=== PATIENT | female | born 1945 | race Caucasian/White ===

== ENCOUNTER 2019-05-14 05:54 | Outpatient (RCR) | payer OTHER, SELFPAY | END 2019-06-11 00:01 | LOC: ONCRAD 05:54 | PROVIDERS: Visit Provider Radiology Radiation Oncology | DX: Z51.0 Encounter for antineoplastic radiation therapy (principal); C55 Malignant neoplasm of uterus, part unspecified | CPT/HCPCS: 77336; 77386 ×2 ==

== ENCOUNTER 2019-06-20 05:41 | Outpatient (RCR) | payer OTHER, SELFPAY | END 2019-07-12 23:59 | disposition home or self-care (01) | LOC: ONCMED 05:41 | PROVIDERS: Visit Provider Radiology Radiation Oncology | DX: C55 Malignant neoplasm of uterus, part unspecified (principal); Z92.3 Personal history of irradiation ==

== ENCOUNTER 2020-01-02 09:17 | Outpatient (CLI) | payer OTHER, SELFPAY ==
--- NOTE | 2020-01-02 11:41 | ONCRAD EPV_ITS ---
Radiation Oncology Established Patient Visit Patient: Jeffy MR#: [id number] : 1945 Age: 74 Sex: Female> Dictated by: Dr. Parveen Thompson Date of Service: 01/02/2020 Referring Physician(s) : Dr. Liam Tafoya Diagnosis: C55 - Malignant neoplasm of uterus, part unspecified, Diagnosed 01/11/2019 (Active) Radiotherapy to Date: Course: Pelvis, Treatment Site: Pelvis 45Gy, Ref. ID: [id number], Energy: 6X, Dose/Fx (cGy): 180, #Fx: 25 / 25, Dose Correction (cGy): 0, Total Dose (cGy): 4,500, Start Date: 04/02/2019, End Date: 05/07/2019, Elapsed Days: 35 Treatment Site: Cervix 50.4Gy, Ref. ID: [id number], Energy: 6X, Dose/Fx (cGy): 180, #Fx: 3 / 3, Dose Correction (cGy): 0, Total Dose (cGy): 540, Start Date: 05/08/2019, End Date: 05/14/2019, Elapsed Days: 6 Chief Complaint / History of Present Illness: The patient is a 74-year-old female with a history of FIGO stage Ib ([id number]) grade 2 endometrial adenocarcinoma status post surgical staging revealing 88% myometrial invasion, positive lymphovascular invasion, and 5 sentinel lymph nodes negative for malignancy. Following surgical staging she was treated with adjuvant radiation to a total dose of 50.4 Gy in 28 fractions followed by brachytherapy in [place]. The patient is seen today in follow-up and she has multiple complaints. She complains of black stools, she complains of abdominal pain, she complains of pencil like stools, she complains of a self palpated left inguinal lymph node, and she complains of a narrowed/shortened vagina. Current Medications: Allergies: Codeine Sulfate and Acetaminophen. Current Complaints / Review of Systems: Constitutional - Complains of a poor appetite. Complains of moderate fatigue. Complains of night sweats which occur every night. Complains of change in weight which she has lost 10 lbs. since last seen on 06/20/2019. Denies fever. Eyes - Denies blurred vision and double vision. ENMT - Denies dysphagia, ear pain, mouth dryness, stomatitis, altered taste and tinnitus. Neck - Denies neck pain. Integumentary - Denies rash. Breasts - Denies pain. Cardiovascular - Denies chest pain but occasionally feels like a band around her chest and edema. Respiratory - Denies cough, dyspnea and wheezing. Gastrointestinal - Complains of abdominal pain after eating. Complains of diarrhea which is characterized as mucoid it is soft and runny and has mucus in it. Complains of heartburn / dyspepsia occasionally. Complains of nausea after eating. Complains of satiety. Denies constipation, hemorrhoids, melena / GI bleeding and vomiting. Genitourinary (F) - Complains of nocturia gets up about 2 to 4 times per night. Denies dysuria, frequency, hematuria, urgency, vaginal discharge / bleeding and vaginal spotting. Musculoskeletal - Complains of joint pain both hips which started after Radiation treatment. Also has lower back pain and muscle weakness in the upper extremity. Denies bone pain. Neurologic - Denies disorientation, dizziness, abnormal gait and headaches. Psychiatric - Complains of depression. Endocrine - Denies diabetes and thyroid disease. Hematologic/Lymphatic - Complains of tender or enlarged lymph nodes in the left groin.. Vital Signs: Performed on 01/02/2020 10:04 AM BMI - 22.266 kg/m2, Height - 65.00 in, Weight - 133.8 lbs, Temperature - 98.6 f, Pulse - 70, Respiration - 16, O2 Sat - 98 %, Pain - 0 and BP - 113/ 71 mm(hg). Physical Exam: General: Alert and oriented x 3. No acute distress. HEENT: Normocephalic, atraumatic. Extraocular Movements Intact: Pupils Equal, Round, Reactive to Light and Accommodation: Sclerae anicteric. Oral cavity is clear without lesions, masses or ulcers. NECK: Supple without supraclavicular or jugular lymphadenopathy. LUNGS: Clear to auscultation bilaterally without rales, rhonchi or wheeze. HEART: Regular rate and rhythm, normal S1 and S2 without murmur, gallop or rub. MUSCULOSKELETAL: No tenderness or percussion pain over the axial skeleton, scapulae or pelvis. ABDOMEN: Soft, nontender, nondistended without masses or organomegaly. Bowell sounds are present. Inguinal lymph nodes: Thorough examination of the bilateral inguinal lymph nodes reveals no palpable abnormalities concerning for malignancy. FRAME FEEDER: External genitalia appears normal and without masses or mucosal irregularity. Speculum examination reveals mild telangiectasia at the vaginal cuff, but no mucosal irregularity within the vaginal soriano or vaginal cuff concerning for malignancy. Palpation of vaginal soriano, vaginal cuff, and rectovaginal septum revealed no irregularity concerning for malignancy. Hemoccult testing was completed and was negative. I also completed vaginal cytology, and the results are pending. However, I suspect that little or no epithelial cells were collected due to the brush that was applied for this procedure. A scraping tool would have been better to obtain epithelial cells from the vaginal cuff. EXTREMITIES: No peripheral edema is identified. Limited motor and sensory examination are grossly intact and symmetric bilaterally. NEUROLOGIC: Cranial nerves II ???XII are grossly intact. Performance Status: 0 - Fully active, able to carry on all predisease activities without restrictions. (ECOG) Pathology: Primary, c55 - malignant neoplasm of uterus, part unspecified, Diagnosed 01/11/2019 (active). Imaging: See HPI Impression: The patient is a 74-year-old female who was diagnosed with pathologic T1b N0 M0 endometrial adenocarcinoma, grade 2 bleeding 88% in the myometrial wall, and positive lymphovascular invasion. She was treated with laparoscopic surgical staging (01/11/2019) followed by external beam radiation therapy to a total dose of 50.4 Gy in 28 fractions (completed 05/14/2019) followed by vaginal brachii therapy in [place]. The patient has no clinical concerns for disease recurrence. However, the patient is complaining of significant abdominal pain, black stools, and pelvic pain. She is very concerned that disease recurrence has occurred. I personally have low suspicion for disease recurrence. However, given the patient's complaints, it is prudent to obtain a CT of the abdomen and pelvis with contrast. Vaginal cytology is pending, and Hemoccult testing was negative. The patient also asked for tumor marker analysis, and although I shared that a CA-125 would be of low yield value, the patient was comforted to know that I would still order the test. In the event that her insurance does not cover for this test, the patient will be presented with the option of paying for it on her own. I plan to follow-up in 3 months with a repeat physical exam. If no epithelial cells were obtained during the requested vaginal cytology, I will repeat vaginal cytology with a better collecting tool. Signed by: 01/02/2020 11:40:42 AM <<Signature on File>> Time spent with patient: CPT Code: CPT Code:
== END 2020-01-02 09:18 | disposition home or self-care (01) ==
PROVIDERS: Visit Provider Radiology Radiation Oncology
DX: R10.2 Pelvic and perineal pain (principal); R10.9 Unspecified abdominal pain; R19.5 Other fecal abnormalities; Z85.42 Personal history of malignant neoplasm of other parts of uterus; Z92.3 Personal history of irradiation
CPT/HCPCS: 88175; 99214

== ENCOUNTER 2020-01-10 12:35 | Outpatient (CLI) | payer OTHER, SELFPAY ==
--- NOTE | 2020-01-10 12:48 | CT_ITS ---
WS: [id number] CT ABDOMEN PELVIS TECHNIQUE: Contrast-enhanced CT of the abdomen and pelvis with coronal and sagittal reformatted image s. CLINICAL INFORMATION: RESTAGING/MALIGNANT NEOPLASM OF UTERUS COMPARISON: CT chest abdomen pelvis 8 8,016 DLP: 722.[address] scans at [facility] use at least one of these dose optimization techniques: automat ed exposure control; mA and/or kV adjustment per patient size (includes targeted exams where dose is matched to clinical indication); or iterative reconstruction. FINDINGS: Prior postoperative changes hysterectomy. Diffuse fatty infiltration of the liver. Normal gallbladder . Portal vein and splenic vein are normal. Normal spleen. Small esophageal hiatal hernia. Lung bases are well aerated. Pancreas is normal. Adrenal glands are normal. No hydronephrosis. Normal renal pare nchymal enhancement. Normal caliber abdominal aorta. No abdominal or pelvic lymphadenopathy. A few diverticuli. No evidence of acute diverticulitis. Normal appendix. No abdominal or pelvic lymph adenopathy. Tiny fat-containing umbilical hernia. Left ABBI. Small focus of sclerosis in the left isch ium adjacent to the SI joint likely benign and stable since 2016. CT/CT abdomen pelvis w con* [id number] IMPRESSION: 1. Prior postoperative changes hysterectomy. 2. No abdominal or pelvic lymphadenopathy. 3. No evidence of metastatic disease in the abdomen or pelvis. 4. Prior postoperative changes left ABBI. 5. Small esophageal hiatal hernia. 6. No other significant findings.
[2020-01-10 13:51] LABS: Blood Urea Nitrogen 10 mg/dL (8-23)
[2020-01-10] MEDS: iohexol 300 mg/mL 100 mL Btl IV (14:44)
[2020-01-10] MEDS: iohexol 300 mg/mL 50 mL Btl PO (14:50)
== END 2020-01-10 12:36 | disposition home or self-care (01) ==
LOC: CT 12:36
PROVIDERS: PCP Family Medicine; Visit Provider Radiology Radiation Oncology
DX: C55 Malignant neoplasm of uterus, part unspecified (principal); Z96.642 Presence of left artificial hip joint; K44.9 Diaphragmatic hernia without obstruction or gangrene
CPT/HCPCS: 36415; 74177; 82565; 84520

== ENCOUNTER 2020-01-13 11:31 | Outpatient (CLI) | payer OTHER, SELFPAY ==
--- NOTE | 2020-01-13 13:17 | ONCRAD EPV_ITS ---
Radiation Oncology Established Patient Visit Patient: Jeffy MR#: [id number] : 1945 Age: 74 Sex: Female Dictated by: Dr. Parveen Thompson Date of Service: 01/13/2020 Referring Physician(s): Dr. Liam Tafoya Diagnosis: C55 - Malignant neoplasm of uterus, part unspecified, Diagnosed 01/11/2019 (Active) Diagnosis and Treatment Rendered: pT1b N0 M0 endometrial adenocarcinoma, grade 2, invading 88% into the myometrial wall, with positive lymphovascular invasion. She was treated with laparoscopic surgical staging (01/11/2019) followed by external beam radiation therapy to a total dose of 50.4 Gy in 28 fractions (completed 05/14/2019) followed by vaginal brachytherapy in [place]. Radiotherapy to Date: Course: Pelvis, Treatment Site: Pelvis 45Gy, Ref. ID: [id number], Energy: 6X, Dose/Fx (cGy): 180, #Fx: 25 / 25, Dose Correction (cGy): 0, Total Dose (cGy): 4,500, Start Date: 04/02/2019, End Date: 05/07/2019, Elapsed Days: 35 Treatment Site: Cervix 50.4Gy, Ref. ID: [id number], Energy: 6X, Dose/Fx (cGy): 180, #Fx: 3 / 3, Dose Correction (cGy): 0, Total Dose (cGy): 540, Start Date: 05/08/2019, End Date: 05/14/2019, Elapsed Interim History: The patient is a 74-year-old female with the above diagnosis and history of treatment rendered. Her most recent CT of the abdomen/pelvis (01/10/2020) was negative for metastatic disease or disease recurrence. Furthermore, there were no abnormal radiographic findings suggestive for an etiology of abdominal pain. Vaginal cytology (01/02/2020) revealed atypical squamous cells of undetermined significance, but there was no evidence of malignancy. She reports that her abdominal pains continue to persist and she acknowledges that they could be stress induced. Current Medications: Allergies: Codeine Sulfate and Acetaminophen. Current Complaints / Review of Systems: Constitutional - Complains of lack of appetite off and on. Complains of moderate fatigue. Complains of night sweats which occur occasionally. Complains of change in weight in which she is up 1.2 lbs. since last seen on 01/02/2020. Denies fever. Eyes - Denies blurred vision and double vision. ENMT - Denies dysphagia, ear pain, mouth dryness, stomatitis and altered taste. Neck - Denies neck pain. Integumentary - Denies rash. Breasts - Denies pain. Cardiovascular - Complains of edema in both ankles. Denies chest pain. Respiratory - Denies cough, dyspnea and wheezing. Gastrointestinal - Complains of abdominal pain which is generalized / diffuse in nature which happens occasionally. Complains of persistent diarrhea which is characterized as loose which occurs about 5 or 6 times per night. Complains of satiety. Denies constipation, heartburn / dyspepsia, melena / GI bleeding, nausea and vomiting. Genitourinary (F) - Complains of nocturia gets up about 2 to 4 times per night. Denies dysuria, frequency, hematuria, urgency, vaginal discharge / bleeding and vaginal spotting. Musculoskeletal - Complains of joint pain in both hips. Denies bone pain. Neurologic - Denies dizziness, abnormal gait and headaches. Hematologic/Lymphatic - Denies tender or enlarged lymph nodes.. Vital Signs: Performed on 01/13/2020 11:55 AM BMI - 22.465 kg/m2, Height - 65.00 in, Weight - 135.0 lbs, Temperature - 98.0 f, Pulse - 74, Respiration - 18, O2 Sat - 97 %, Pain - 0 and BP - 130/ 77 mm(hg). Physical Exam: General: Alert and oriented x 3. No acute distress. HEENT: Normocephalic, atraumatic. Extraocular Movements Intact: Pupils Equal, Round, Reactive to Light and Accommodation: Sclerae anicteric. Oral cavity is clear without lesions, masses or ulcers. NECK: Trachea midline. ABDOMEN: Soft, nontender, nondistended without masses or organomegaly. Bowell sounds are present. EXTREMITIES: No peripheral edema is identified. Limited motor and sensory examination are grossly intact and symmetric bilaterally. NEUROLOGIC: Cranial nerves II ???XII are grossly intact. Normal sensation, strength 5/5 in all extremities, normal gait, no ataxia. Performance Status: 0 - Fully active, able to carry on all predisease activities without restrictions. (ECOG) Lab: None pending. Pathology: Primary, c55 - malignant neoplasm of uterus, part unspecified, Diagnosed 01/11/2019 (active). Imaging: See HPI Impression: The patient is a 74 year old with pT1b N0 M0 endometrial adenocarcinoma, grade 2, invading 88% into the myometrial wall, with positive lymphovascular invasion. She was treated with laparoscopic surgical staging (01/11/2019) followed by external beam radiation therapy to a total dose of 50.4 Gy in 28 fractions (completed 05/14/2019) followed by vaginal brachytherapy in [place]. She has no evidence of disease recurrence or significant halfway toxicities to treatment. Plan: -) Follow up in three months with speculum exam -) Annual vaginal cytology (next one due 12/2020) -) Imaging as clinically deemed appropriate. -) Consider adding [employer] [facility] to her team of oncologic physicians conducting surveillance. Signed by: 01/13/2020 1:15:29 PM <<Signature on File>> Time spent with patient: CPT Code: CPT Code:
== END 2020-01-13 11:32 | disposition home or self-care (01) ==
LOC: ONCMED 11:34
PROVIDERS: PCP Family Medicine; Visit Provider Radiology Radiation Oncology
DX: Z08 Encounter for follow-up examination after completed treatment for malignant neoplasm (principal); Z85.42 Personal history of malignant neoplasm of other parts of uterus; R10.9 Unspecified abdominal pain; Z92.3 Personal history of irradiation
CPT/HCPCS: 99213

== ENCOUNTER → 2020-02-03 08:44 | Outpatient (BNVA) | payer OTHER, SELFPAY | PROVIDERS: Referring Provider Dermatology; Visit Provider Dermatology | DX: Z12.83 Encounter for screening for malignant neoplasm of skin (principal); L82.1 Other seborrheic keratosis; L82.0 Inflamed seborrheic keratosis; L57.0 Actinic keratosis; L85.1 Acquired keratosis [keratoderma] palmaris et plantaris; D22.9 Melanocytic nevi, unspecified | CPT/HCPCS: 17000; 17003; 99203 ==

== ENCOUNTER 2020-04-08 13:22 | Outpatient (CLI) | payer OTHER, SELFPAY ==
--- NOTE | 2020-04-08 18:23 | ONCRAD EPV_ITS ---
Radiation Oncology Established Patient Visit Patient: Krystian Acevedo [id number] : 1945 Age: 74 Sex: Female Dictated by: Dr. Parveen Thompson Date of Service: 04/08/2020 Referring Physician(s) : Dr. Liam Tafoya Diagnosis and Treatment Rendered: pT1b N0 M0 endometrial adenocarcinoma, grade 2, invading 88% into the myometrial wall, with positive lymphovascular invasion. She was treated with laparoscopic surgical staging (01/11/2019) followed by external beam radiation therapy to a total dose of 50.4 Gy in 28 fractions (completed 05/14/2019) followed by vaginal brachytherapy in [place]. Pertinent surveillance: -) CT of the abdomen/pelvis (01/10/2020) was negative for metastatic disease or disease recurrence. -) Vaginal cytology (01/02/2020) revealed atypical squamous cells of undetermined significance, but there was no evidence of malignancy. -) Routine pelvic examination reveals no evidence for mucosal irregularity within the vaginal vault, or vaginal cuff. Current History: The patient is seen today in follow-up (last seen 01/13/2020) and she reports nonspecific postprandial abdominal aches and pains. She reports no vaginal discharge, no diarrhea, and no constipation. She does however complain of dyspareunia secondary to a shortened vaginal vault. Current Medications: Allergies: Codeine Sulfate and Acetaminophen. Current Complaints / Review of Systems: Constitutional - Complains of moderate fatigue. Complains of night sweats which occur every night. Denies lack of appetite and fever. Eyes - Denies blurred vision and double vision. ENMT - Complains of problems with hearing in both ears. Denies dysphagia, ear pain, mouth dryness, stomatitis, altered taste and tinnitus. Neck - Denies neck pain. Integumentary - Denies rash. Breasts - Denies pain. Cardiovascular - Denies chest pain but feels like she has a tight band around her chest which has been going on for about 4 months and edema. Respiratory - Complains of dyspnea associated with normal activity. Denies cough and wheezing. Gastrointestinal - Complains of abdominal pain occasionally after eating and satiety. Denies constipation, diarrhea, heartburn / dyspepsia, melena / GI bleeding, nausea and vomiting. Has no control of her bowels and will has mucus that will come out. Genitourinary (F) - Complains of frequent incontinence. Complains of nocturia gets up about 1 to 3 times per night. Denies dysuria, frequency, urgency, vaginal discharge / bleeding and vaginal spotting. Musculoskeletal - Complains of bone pain lower right ribs. Complains of joint pain bilateral hips and shoulders. Complains of generalized muscle weakness. Neurologic - Denies dizziness, abnormal gait and headaches. Endocrine - Denies diabetes and thyroid disease. Hematologic/Lymphatic - Denies tender or enlarged lymph nodes.. Vital Signs: Performed on 04/08/2020 1:54 PM BMI - 22.798 kg/m2, Height - 65.00 in, Weight - 137.0 lbs, Temperature - 98.4 f, Pulse - 69, Respiration - 18, O2 Sat - 96 %, Pain - 0 and BP - 126/ 75 mm(hg). Physical Exam: General: Alert and oriented x 3. No acute distress. HEENT: Normocephalic, atraumatic. Extraocular Movements Intact: Pupils Equal, Round, Reactive to Light and Accommodation: Sclerae anicteric. Oral cavity is clear without lesions, masses or ulcers. LUNGS: Clear to auscultation bilaterally without rales, rhonchi or wheeze. HEART: Regular rate and rhythm, normal S1 and S2 without murmur, gallop or rub. MUSCULOSKELETAL: No tenderness or percussion pain over the axial skeleton, scapulae or pelvis. ABDOMEN: Soft, nontender, nondistended without masses or organomegaly. Bowell sounds are present. Genital examination: External genitalia appears normal with no irregularity within the introitus, urethral meatus, clitoris, labia majora/minora, concerning for malignancy. Speculum examination revealed moderate telangiectasia, but no mucosal irregularity in the vaginal vault, or vaginal cuff. The vaginal cuff was well-healed. There is no palpable abnormality within the vaginal vault or vaginal cuff. Bimanual palpation revealed no irregularity within the rectovaginal septum, and the anal sphincter demonstrated a normal tone. EXTREMITIES: No peripheral edema is identified. Limited motor and sensory examination are grossly intact and symmetric bilaterally. NEUROLOGIC: Cranial nerves II ???XII are grossly intact. Normal sensation, strength 5/5 in all extremities, normal gait, no ataxia. Performance Status: 0 - Fully active, able to carry on all predisease activities without restrictions. (ECOG) Lab: None pending. Pathology: Primary, c55 - malignant neoplasm of uterus, part unspecified, Diagnosed 01/11/2019 (active). Imaging: See HPI Impression: The patient is a 74 year old female with pT1b N0 M0 endometrial adenocarcinoma, grade 2, invading 88% into the myometrial wall, with positive lymphovascular invasion. She was treated with laparoscopic surgical staging (01/11/2019) followed by external beam radiation therapy to a total dose of 50.4 Gy in 28 fractions (completed 05/14/2019) followed by vaginal brachytherapy in [place] (brachytherapy records not currently available to me). She has no clinical evidence of disease recurrence or significant long term care phlebotomist toxicities to treatment. Plan: -) Follow up in three months with speculum exam with Dr. Tafoya. -) Annual vaginal cytology (next one due 12/2020) -) Imaging as clinically deemed appropriate. The patient was offered follow-up with radiation oncology with Dr. Lennon, yet the patient elected to continue her surveillance with Dr. Tafoya. Cc: Dr. Tafoya Signed by Parveen Thompson MD: 04/08/2020 6:22:23 PM <<Signature on File>> CPT Code: CPT Code:
== END 2020-04-08 13:23 | disposition home or self-care (01) ==
LOC: ONCMED 13:25
PROVIDERS: PCP Family Medicine; Visit Provider Radiology Radiation Oncology
DX: C54.1 Malignant neoplasm of endometrium (principal); Z92.3 Personal history of irradiation
CPT/HCPCS: 99213; 99214

== ENCOUNTER → 2020-08-19 10:38 | Outpatient (BNVA) | payer OTHER, SELFPAY | PROVIDERS: PCP Family Medicine; Visit Provider Family Medicine | DX: R53.83 Other fatigue (principal); Z13.6 Encounter for screening for cardiovascular disorders; E55.9 Vitamin D deficiency, unspecified; R19.4 Change in bowel habit; Z86.39 Personal history of other endocrine, nutritional and metabolic disease | CPT/HCPCS: 80053; 82306; 84439; 84443 ==

== ENCOUNTER → 2020-08-20 12:03 | Outpatient (BNVA) | payer OTHER, SELFPAY | PROVIDERS: PCP Family Medicine; Visit Provider Family Medicine | DX: R19.4 Change in bowel habit (principal) | CPT/HCPCS: 87177; 87209; 87493; 87506 ==

== ENCOUNTER → 2020-09-07 09:56 | Outpatient (BNVA) | payer OTHER, SELFPAY | PROVIDERS: PCP Family Medicine; Visit Provider Surgery | DX: R19.4 Change in bowel habit (principal) | CPT/HCPCS: 87635 ==

== ENCOUNTER 2020-09-10 08:23 | Day surgery (SDC) | payer OTHER, SELFPAY ==
[2020-09-09 12:01] VITALS: BMI 23.8
--- NOTE | 2020-09-10 08:49 | ANES.PREANE2 ---
Pre-Anesthetic Assessment Pre-Anesthetic Assessment: Height/Weight: Height 1.65 m Weight 64.864 kg Preop Diagnosis: diagnostic Proposed Procedure: Operation Date: 09/10/20 09:30 Proposed Procedures p Colonoscopy 92010 R19.7(Not Applicable) - Damon Hemphill MD Was Beta Lalo taken within 24 hours: N/A Was Clonidine taken within 24 hours: N/A Social: Social History: No alcohol and No tobacco Exam: Pre-Anes Outpt Exam: alert, oriented x 3, clear to auscultation bilaterally and regular rate & rhythm Airway: Submandibular: WNL Cervical ROM: WNL MP: 2 Dentition: Full Musc/skel: Comments: Fatigue, weight loss Anesthetic Plan: ASA status: 2 Anesthesia: MAC Risk of > 500 ml blood loss (7ml/kg in children): No PFSH Anesthesia PFSH: Medical History (Updated 08/19/20 @ 10:25 by Ariella Murphy DO) History of cancer of uterus History of thyroid nodule Surgical History (Updated 09/01/20 @ 16:11 by Damon Hemphill MD) H/O thyroidectomy Benign History of colonoscopy within 10 years History of hysterectomy for cancer Family History Other Cancer Social History Smoking and tobacco status: never smoked Alcohol intake: never History of recent travel: Yes Data Anesthesia Cardiac Studies: No Data to Display
[2020-09-10 08:55] VITALS: BP 127/79; PULSE 76; RESP 16; TEMP 36.6; O2SAT 98
[2020-09-10] MEDS: sodium chloride 0.9% 1,000 ML 30 ML IV (09:17)
--- NOTE | 2020-09-10 09:28 | W.PM.OPSUD ---
Surgery/Procedure H&P Update DATE OF PROCEDURE: September 10, 2020 DATE H&P PERFORMED: 09/01/20 H&P UPDATE INFORMATION: I have reviewed H&P completed within last 30 days, I have examined patient prior to procedure and No changes to prior documentation PREOP DIAGNOSIS: diagnostic PLANNED PROCEDURE: Operation Date: 09/10/20 09:30 Proposed Procedures p Colonoscopy 26421 R19.7(Not Applicable) - Damon Hemphill MD
[2020-09-10 10:10] VITALS: BP 109/57; PULSE 61; RESP 16; TEMP 36.4; O2SAT 100
--- NOTE | 2020-09-10 10:10 | ANE.PACU2 ---
Inpatient post-anesthesia follow up: Airway intact: Yes Vital signs: Temperature 97.8 F Pulse Rate 76 Respiratory Rate 16 Blood Pressure 127/79 Pulse Oximetry 98 Oxygen Delivery Me thod Room Air Oxygen Flow Rate Fraction of Inspir ed Oxygen Hydration adequate: Yes Nausea and vomiting: No Pain level: 1 Mental status: Baseline
[2020-09-10 10:28] VITALS: BP 120/60; PULSE 57; RESP 16; O2SAT 99
--- NOTE | 2020-09-10 14:35 | ANE.PACU2 ---
Inpatient post-anesthesia follow up: Airway intact: Yes Vital signs: Temperature 97.5 F Pulse Rate 57 Respiratory Rate 16 Blood Pressure 120/60 Pulse Oximetry 99 Oxygen Delivery Me thod Room Air Oxygen Flow Rate Fraction of Inspir ed Oxygen Hydration adequate: Yes Nausea and vomiting: No Pain level: 1 Mental status: Baseline
== END 2020-09-10 10:39 | disposition home or self-care (01) ==
PROVIDERS: PCP Family Medicine; Visit Provider Surgery
PROC: 0DJD8ZZ Inspection of Lower Intestinal Tract, Via Natural or Artificial Opening Endoscopic (ICD-10-PCS; CPT 45378; principal; 2020-09-10 09:30)
DX: R19.7 Diarrhea, unspecified (principal); Z90.710 Acquired absence of both cervix and uterus; Z85.42 Personal history of malignant neoplasm of other parts of uterus
CPT/HCPCS: 45380; 88305; 96360; J2704; J7030

== ENCOUNTER → 2020-09-17 09:56 | Outpatient (BNVA) | payer OTHER, SELFPAY | PROVIDERS: PCP Family Medicine; Visit Provider Family Medicine | DX: D53.9 Nutritional anemia, unspecified (principal) | CPT/HCPCS: 82607 ==

== ENCOUNTER 2020-10-12 13:20 | Outpatient (CLI) | payer OTHER, SELFPAY ==
--- NOTE | 2020-10-12 13:46 | CT_ITS ---
WS: [id number] CT CHEST, ABDOMEN AND PELVIS WITH CONTRAST. HISTORY: FATIGUE, MALIGNANT NEOPLASM OF ENDOMETRIUM TECHNIQUE: Contiguous 5 mm axial imaging performed through the chest, abdomen and pelvis with IV cont rast, oral contrast has been provided. Coronal and sagittal reformats chest. Coronal and sagittal ref ormats through the abdomen and pelvis. All CT scans at [facility] use at least one of the se dose optimization techniques: automated exposure control; mA and/or kV adjustment per patient size (includes targeted exams where dose is matched to clinical indication); or iterative reconstruction. CONTRAST: Omnipaque 300; 95 mL IV. DLP: 1801.81 mGycm COMPARISON: 01/10/[address]: Mild pulmonary hyperexpansion. No pulmonary nodule or mass. Benign granuloma LEFT lower lob e. No pericardial or pleural effusions. Very slight enlargement of the heart chambers. No mediastinal or hilar lymph nodes. Abdomen CT: Moderate size hiatal hernia the GE junction. Liver and gallbladder are negative. Spleen i s normal size. Normal pancreas. Mild thickening of the LEFT adrenal gland similar to the prior study from 01/10/2020. Atherosclerosis aorta. No aneurysm. No free fluid or adenopathy. There is marked feca l retention in the RIGHT colon. The appendix is normal. No focal colonic stricture. Pelvic CT: No free fluid or adenopathy. Prior hysterectomy. Urinary bladder is not distended. No destructive bone lesions the lumbar spine or pelvis. Prior LEFT hip arthroplasty. CT/CT chest abd pel w con* IMPRESSION: 1. No evidence for metastatic disease throughout the chest, abdomen or pelvis. 2. No pneumonia. 3. Marked fecal retention in the RIGHT colon. Normal appendix. 4. Stable thickening of the LEFT adrenal gland. 5. Prior hysterectomy. 6. Moderate hiatal hernia.
[2020-10-12] MEDS: iohexol 300 mg/mL 50 mL Btl PO (13:51)
[2020-10-12] MEDS: iohexol 300 mg/mL 100 mL Btl IV (15:33)
== END 2020-10-12 13:21 | disposition home or self-care (01) ==
PROVIDERS: PCP Family Medicine; Visit Provider Obstetrics & Gynecology Gynecologic Oncology
DX: R53.83 Other fatigue (principal); C54.1 Malignant neoplasm of endometrium; Z90.710 Acquired absence of both cervix and uterus; K44.9 Diaphragmatic hernia without obstruction or gangrene; K59.00 Constipation, unspecified
CPT/HCPCS: 71260; 74177; Q9967

== ENCOUNTER 2021-06-02 09:22 | Outpatient (CLI) | payer OTHER, SELFPAY ==
--- NOTE | 2021-06-02 11:00 | CT_ITS ---
WS: [id number] CT ABDOMEN PELVIS TECHNIQUE: Contrast-enhanced CT of the abdomen and pelvis with coronal and sagittal reformatted image s. CLINICAL INFORMATION: rlq pain COMPARISON: CT October 12, 2020 January 10, 2020 DLP: 1000.[address] scans at [facility] use at least one of these dose optimization techniques: automated e xposure control; mA and/or kV adjustment per patient size (includes targeted exams where dose is matc hed to clinical indication); or iterative reconstruction. FINDINGS: Diffuse fatty infiltration of the liver. Heterogeneous enhancement involving the right hepatic lobe l aterally at the dome of the liver new from previous. This appears to be subcapsular in location with adjacent thickening of the right hemidiaphragm. Enhancing lesion measures approximately 3.7 x 3.2 x 2 .2 cm suspicious for metastatic disease. Normal portal vein and splenic vein. Normal spleen. Small es ophageal hiatal hernia. Thickening and enhancement involving the stomach and proximal duodenum compat ible with gastroduodenitis. Moderate right hydronephrosis with delayed right nephrogram is new from previous. Right ureter is dil ated to the mid segment. There appears to be heterogeneously enhancing lesion involving right common iliac vein or iliac chain likely representing metastatic disease or thrombus/tumor thrombus. This radha sures 1.8 x 1.2 CM. This is new from previous. Recommend right lower extremity ultrasound to assess f or DVT. Normal portal vein and splenic vein. Normal spleen. Stable left adrenal adenoma. Normal left renal pa renchymal enhancement. No hydronephrosis in the left kidney. Normal caliber abdominal aorta. 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 Normal sigmoid colon. Tiny fa t-containing umbilical hernia. Lung bases are well aerated. Noncalcified nodule right lower lobe medi ally measuring 4 mm is stable. Disc space narrowing L2-L3 L3-L4 with mild disc bulging. Prior hystere ctomy. CT/CT abdomen pelvis w con* [id number] IMPRESSION: 1. Suspicious enhancing lesion laterally at the dome of the liver right hepati c lobe is new from previous. This appears subcapsular in location with adjacent diffuse thickening of the right hemidiaphragm. Lesion is suspicious for metast atic disease measuring 3.7 x 3.2 x 2.2 cm. 2. Moderate right hydronephrosis with delayed right nephrogram is new from pre vious. Right ureter is dilated to the mid segment. Enhancing soft tissue with c entral low attenuation along the iliac chain likely represents metastatic disea se and/or expansile thrombus or tumor thrombus involving the right common iliac vein measuring 1.8 x 1.2 CM. This obstructs the right ureter. Recommend right lower extremity ultrasound to assess for DVT. 3. Small esophageal hiatal hernia with evidence of gastroduodenitis. 4. Stable small left adrenal adenoma. 5. Noncalcified nodule right lower lobe measuring 4 mm stable compared to prev ious. 6. Prior hysterectomy. Notified Ariella Murphy DO at 06/02/2021 12:26 PM.
[2021-06-02 12:26] LABS: Blood Urea Nitrogen 9 mg/dL (8-23)
[2021-06-02] MEDS: iohexol 350 mg/mL 100 mL Btl IV (15:09)
[2021-06-02] MEDS: iohexol 300 mg/mL 50 mL Btl PO (15:09)
== END 2021-06-02 09:23 | disposition home or self-care (01) ==
PROVIDERS: PCP Family Medicine; Visit Provider Family Medicine
DX: R10.31 Right lower quadrant pain (principal); Z90.710 Acquired absence of both cervix and uterus; R91.1 Solitary pulmonary nodule; D35.02 Benign neoplasm of left adrenal gland; K44.9 Diaphragmatic hernia without obstruction or gangrene; N13.30 Unspecified hydronephrosis
CPT/HCPCS: 74177; 82565; 84520; Q9967

== ENCOUNTER 2021-06-02 13:12 | Emergency (ER) | payer OTHER, SELFPAY ==
[2021-06-02 13:25] VITALS: BP 160/102; PULSE 81; RESP 18; TEMP 37.1; O2SAT 98; BMI 24.5
[2021-06-02 13:52] LABS: Basophils # 0.1 10^3/uL (0.0-0.1); Basophils % 1.1 %; Eosinophils # 0.3 10^3/uL (0.0-0.8); Eosinophils % 4.2 %; Hematocrit 42.2 % (37.0-47.0); Hemoglobin 13.4 g/dL (11.5-15.3); Lymphocytes # 1.1 10^3/uL (0.8-4.8); Lymphocytes % 16.7 %; Mean Corpuscular HGB Conc 31.8 g/dL (30.0-36.0); Mean Corpuscular Hemoglobin 33.5 pg (28.0-34.0); Mean Corpuscular Volume 105.5 fl (81-99); Mean Platelet Volume 8.4 fL (7.4-10.4); Monocytes # 0.6 10^3/uL (0.2-0.9); Monocytes % 9.1 %; Neutrophils # 4.42 10^3/uL (1.8-7.7); Neutrophils % 68.6 %; Nucleated Red Blood Cells % 0 %; Platelet Count 342 10^3/cmm (130-400); Red Cell Distribution Width 11.9 % (12.1-15.1); White Blood Count 6.5 10^3/uL (4.0-10.0)
[2021-06-02 14:12] LABS: Alanine Aminotransferase 20 U/L (0-33); Albumin Level 4.3 g/dL (3.5-5.2); Alkaline Phosphatase 137 IU/L (35-105); Aspartate Amino Transferase 26 U/L (0-32); Blood Urea Nitrogen 8 mg/dL (8-23); Calcium 8.7 mg/dL (8.5-10.5); Carbon Dioxide 21 mmol/L (22-29); Chloride 103 mmol/L (98-107); Globulin 3.1 g/dL (1.3-4.6); Glucose 87 mg/dL (65-115); Lipase 45 U/L (13-60); Osmolality Calculated 288 mOsm/kg (285-295); Sodium 140 mmol/L (136-145); Total Bilirubin 0.7 mg/dL (0.15-1.2); Total Protein 7.4 g/dL (6.6-8.7)
--- NOTE | 2021-06-02 14:54 | USCV_ITS ---
Kristina Boland Age: 75 Gender: F : 1945 Exam Date: 06/02/2021 15:11 Ordering Phys: Benny Sosa Technologist: Tory Ferreira Exam Location: [facility] [place]_ Indication: F/U CT EVAL FOR RLE DVT PROCEDURES: Venous duplex imaging was performed in only the right lower extremity. The following venous structures were evaluated: common femoral vein, profunda vein, proximal portion of the greater saphenous vein, superficial femoral vein, and the popliteal vein. In addition, the posterior tibial and peroneal trunk were evaluated. Serial compression, augmentation maneuvers, and spectral Doppler flow evaluation were performed. FINDINGS: Normal 2-D Doppler and augmentation and compressibility throughout the lower extremity venous structures. Additional imaging through the proximal calf veins also reveals no thrombus. Limited evaluation of the greater saphenous vein is patent with no thrombus. CONCLUSIONS No DVT right lower extremity. Dr. Esmer Melendez DO (Electronically Signed) Final Date: 02 June 2021 15:45 S
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
[2021-06-02 17:34] VITALS: BP 160/102; PULSE 81; RESP 18; TEMP 37.1; O2SAT 98
== END 2021-06-02 17:34 | disposition home or self-care (01) ==
PROVIDERS: Emergency Medicine; Emergency Provider Nurse Practitioner Family; PCP Family Medicine
DX: M79.604 Pain in right leg (principal); Z85.42 Personal history of malignant neoplasm of other parts of uterus
CPT/HCPCS: 80053; 83690; 85025; 93971; 99282

== ENCOUNTER 2021-06-23 08:56 | Outpatient (CLI) | payer OTHER, SELFPAY ==
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
== END 2021-06-23 08:57 | disposition home or self-care (01) ==
LOC: ONCMED 09:01
PROVIDERS: PCP Family Medicine; Visit Provider Internal Medicine Medical Oncology
DX: C54.1 Malignant neoplasm of endometrium (principal); C78.02 Secondary malignant neoplasm of left lung; C78.01 Secondary malignant neoplasm of right lung; N13.30 Unspecified hydronephrosis; T50.8X5D Adverse effect of diagnostic agents, subsequent encounter; K52.1 Toxic gastroenteritis and colitis; Z80.3 Family history of malignant neoplasm of breast
CPT/HCPCS: 99205

== ENCOUNTER 2021-07-13 09:58 | Day surgery (SDC) | payer OTHER, SELFPAY ==
[2021-07-08 15:20] VITALS: BMI 24.0
[2021-07-13 10:19] VITALS: BP 139/72; PULSE 86; RESP 18; O2SAT 98
[2021-07-13] MEDS: sodium chloride 0.9% 1,000 ML 30 ML IV (10:24)
--- NOTE | 2021-07-13 10:43 | US_ITS ---
WS: [id number] Limited abdomen ultrasound. HISTORY: Patient presents for possible biopsy of the mass along the diaphragmatic surface of the RIGH T lobe of the liver. Ultrasound reveals the mass is evident along the diaphragmatic surface of the liver. Due to its locat ion and patient's limited ability to hold her breath for any length of time no biopsy will be perform ed. This lesion is very deep and closely associated with the diaphragm. Explained to the limitations and possible complications to the patient. At this time we have elected not to perform an ultrasound-guided biopsy. US/US liver [id number] IMPRESSION: Mass along the diaphragmatic surface of RIGHT lobe the liver is identified. Inc reased risk for complications during biopsy of this mass due to its location. Consider evaluation of the RIGHT ureter as there is a mass obstructing the RIGH T ureter causing hydronephrosis. Biopsy of the obstructing lesion in the RIGHT ureter recommended as a safer option. Otherwise biopsy of the hepatic mass mallory g the diaphragmatic surface at a tertiary care center recommended.
[2021-07-13 11:03] LABS: INR 0.97 (0.8-1.2)
--- NOTE | 2021-07-13 11:43 | PC.NURSE ---
Procedure canceled per Dr. Melendez.
== END 2021-07-13 11:40 | disposition home or self-care (01) ==
LOC: GILAB 09:59
PROVIDERS: PCP Family Medicine Adult Medicine; Visit Provider Radiology Diagnostic Radiology
DX: R16.0 Hepatomegaly, not elsewhere classified (principal); Z53.8 Procedure and treatment not carried out for other reasons
CPT/HCPCS: 36415; 76705; 85610; J7030

== ENCOUNTER → 2021-07-22 09:59 | Outpatient (BNVA) | payer OTHER, SELFPAY | PROVIDERS: PCP Family Medicine Adult Medicine; Visit Provider Family Medicine Adult Medicine | DX: R94.5 Abnormal results of liver function studies (principal) | CPT/HCPCS: 80053 ==

== ENCOUNTER 2021-08-16 08:50 | Outpatient (CLI) | payer MEDICARE, SELFPAY ==
--- NOTE | 2021-08-16 09:50 | CT_ITS ---
WS: [id number] CT CHEST, ABDOMEN AND PELVIS WITH CONTRAST HISTORY: Abnormal prior CT. History of endometrial cancer. TECHNIQUE: Contiguous 5 mm axial imaging performed through the chest, abdomen and pelvis with IV cont rast, oral contrast has been provided. Coronal and sagittal reformats chest. Coronal and sagittal ref ormats through the abdomen and pelvis. All CT scans at [facility] use at least one of these d ose optimization techniques: automated exposure control; mA and/or kV adjustment per patient size (in cludes targeted exams where dose is matched to clinical indication); or iterative reconstruction. CONTRAST: Omnipaque 300; 95 mL IV. DLP: 1189.79 mGy.cm COMPARISON: 06/02/2021, 10/12/[address] 06/22/[address]: No change in size 6 mm noncalcified nodule at the LEFT apex. Indeterminate 3 mm nodule in t he central LEFT lung, image 15 of series 4. If this is a nodule that was not present on the prior exa mination. The largest nodule in the medial RIGHT upper lobe measures 10 x 8 mm and stable. New 4 mm n odule medial RIGHT lower lobe. No adenopathy. Mild atherosclerosis aorta. Pulmonary artery size is no rmal. Small hiatal hernia. Abdomen CT: Again noted is a PET/CT positive mixed density mass along the RIGHT diaphragmatic surface . Mass measures 4.0 x 2.5 cm and not significantly increased in size since the prior CT of 06/02/2021 . Low attenuation along the falciform ligament is probably hepatic steatosis. No bile duct dilatation . Pancreas and spleen are normal. Again noted is a low-attenuation nodule associated with the LEFT ad renal gland measuring 10 mm. Negative on PET/CT. RIGHT adrenal gland is negative. Normal gallbladder. Mild atherosclerosis aorta. Negative LEFT kidney. RIGHT kidney: Persistent moderate obstruction and hydronephrosis RIGHT kidney. Ureter is dilated into the pelvis. This obstruction has been previously described without obvious progression. Mesenteric d eposits/lymph nodes are causing the obstruction along the RIGHT distal common iliac artery and proxim al external iliac artery. Soft tissue mass measures 16 x 31 mm along the RIGHT iliac chain causing the obstruction. Not signifi cantly changed since the prior study. No ascites. No additional mesenteric deposits. No GI tract obstruction. No appendicitis. Pelvic CT: No free fluid in the pelvis. No adenopathy in the pelvis. No metastatic osseous destruction identified. Prior LEFT hip arthroplasty. CT/CT chest abd pel w con* IMPRESSION: 1. No change in the 6 mm LEFT apical and RIGHT upper lobe 10 x 8 mm metastatic nodules as compared to 06/22/2021. 2. New 4 mm RIGHT lower lobe and indeterminate 3 mm LEFT upper lobe metastatic nodules. 3. No mediastinal or hilar adenopathy in the thorax. 4. Metastatic deposit along the diaphragmatic surface RIGHT lobe the liver radha sures 4.0 x 2.5 cm without significant increase in size. No improvement. 5. Moderate RIGHT hydronephrosis is stable. Hydronephrosis secondary to a meta static deposit or adenopathy obstructing the RIGHT ureter at the level of the d istal common iliac artery. Metastatic deposit measures 16 x 31 mm. 6. No ascites. No additional metastatic nodules or implants appreciated.
[2021-08-16] MEDS: iohexol 300 mg/mL 100 mL Btl IV (10:24)
[2021-08-16] MEDS: iohexol 300 mg/mL 50 mL Btl PO (10:25)
== END 2021-08-16 08:51 | disposition home or self-care (01) ==
PROVIDERS: PCP Family Medicine Adult Medicine; Visit Provider Family Medicine Adult Medicine
DX: R93.2 Abnormal findings on diagnostic imaging of liver and biliary tract (principal); Z85.42 Personal history of malignant neoplasm of other parts of uterus; R91.8 Other nonspecific abnormal finding of lung field; N13.30 Unspecified hydronephrosis
CPT/HCPCS: 71260; 74177

== ENCOUNTER → 2021-08-31 11:23 | Outpatient (BNVA) | payer MEDICARE, SELFPAY | PROVIDERS: PCP Family Medicine Adult Medicine; Visit Provider Family Medicine Adult Medicine | DX: R19.03 Right lower quadrant abdominal swelling, mass and lump (principal); R93.2 Abnormal findings on diagnostic imaging of liver and biliary tract; N13.5 Crossing vessel and stricture of ureter without hydronephrosis; R63.4 Abnormal weight loss; D53.9 Nutritional anemia, unspecified; Z85.42 Personal history of malignant neoplasm of other parts of uterus; R10.31 Right lower quadrant pain | CPT/HCPCS: 80053; 82105; 82378; 85025; 86304 ==

== ENCOUNTER 2021-09-07 09:20 | Outpatient (CLI) | payer MEDICARE, SELFPAY ==
--- NOTE | 2021-09-07 19:11 | ONC FU_ITS ---
Dr. Betancourt Patient Follow-Up Note Patient: Kristina Boland Unit #: [id number]: 1945 Dicatated By: Donnie Betancourt M.D.Date of Visit:Sep 07, 2021 Onc Med Follow-up/Prog Note Chief Complaint: Endometrial cancer. 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 She has suspected metastatic disease with CT evidence of an enhancing mass along the right iliac chain with associated right hydronephrosis and a right hepatic lobe mass. She had presented in November 2018 with postmenopausal bleeding. Her D&C on 12/05/2018 showed moderately differentiated endometrial adenocarcinoma, endometrioid pattern. She then had [facility] oncology consultation with Dr. Capps in [place]. On 01/10/2019 she underwent robotic assisted modified radical total laparoscopic hysterectomy, bilateral salpingo-oophorectomy, and bilateral pelvic and periaortic sentinel lymphadenectomy. Pathology showed grade 2 endometrial endometrioid adenocarcinoma measuring 6 x 4.5 cm. There was myometrial invasion measured at 88% of the myometrial thickness. Lymphovascular space invasion was identified. However, 2 pelvic sentinel lymph nodes and 3 para-aortic sentinel lymph nodes were uninvolved. Pathologic staging was pT1b, pN0 (sn). Due to the depth of myometrial invasion, she was given postoperative adjuvant radiation. She completed treatment to the pelvis on 05/07/2019, total dose 4500 cGy administered in 25 fractions, followed by a boost to the cervix of 540 cGy administered in 3 fractions, completed on 05/14/2019. She then underwent a vaginal brachytherapy boost, total dose 1200 cGy administered in 2 fractions, completed on 06/10/2019. As of 10/12/[address] scans showed no evidence of metastatic disease throughout the chest, abdomen, or pelvis. On 06/02/2021 she was seen in the emergency room with complaints of pain in the right lower quadrant of the abdomen and in the right leg. Contrast-enhanced CT of the abdomen/pelvis showed an enhancing lesion involving the lateral aspect of the right hepatic lobe near the dome of the liver measuring 3.7 x 3.2 x 2.2 cm. It was new from previous studies and suspicious for metastatic disease. Also noted was new moderately severe right hydronephrosis. The right ureter was noted to be dilated with evidence of an enhancing soft tissue mass along the iliac chain, also likely representing metastatic disease. Small left adrenal adenoma appeared stable, and a 4 mm noncalcified right lower lobe pulmonary nodule also appeared stable. A venous Doppler study of the right lower extremity showed no evidence of deep vein thrombosis. With those findings she had further evaluation with PET/CT on 06/22/2021. Findings included FDG avid pulmonary nodules, one in the left upper lobe and one in the right upper lobe, maximum SUV 5.1. The right hepatic lobe liver mass was FDG avid with SUV 10.4 and there was an FDG avid mass noted at the level right common iliac lymph node. There was associated obstructive uropathy involving the right kidney due to the iliac adenopathy/mass. I had seen her initially on 06/23/2021. Given the CT and PET/CT findings, she was recommended to proceed with biopsy. Unfortunately neither of the lesions was accessible for a CT directed needle biopsy, and she was not interested in attempting anything more invasive. Her restaging CT scans on 08/16/2021 showed no change in the medial right upper lobe pulmonary nodule measuring 10.8 mm. Additional subcentimeter pulmonary nodules in the left apex and central left lung also appeared stable. A new 4 mm nodule was noted in the medial right lower lobe. The mass along the right diaphragmatic surface measured 4.0 x 2.5 cm and was not significantly increased in size compared to the May 2021 CT. There was persistent moderate obstruction and hydronephrosis of the right kidney with the right ureter dilated into the pelvis. Soft tissue mass along the right iliac chain measuring 16 x 31 mm was also not significantly changed. She has seen for a follow-up visit. She says she is feeling okay. She indicates that both her physical and mental energy have gone down, but she is still active in doing light work. ECOG score is 1. Her appetite is also down a little, and she has lost some weight. She has not had fever or night sweats, but she occasionally has hot flashes at night. She continues to have pain in her right lower quadrant area. She has managing it adequately with ibuprofen. She has not had sore mouth or throat. She does not complain of cough, and she has not been having shortness of breath or chest pain. She has no other GI or complaints. She has no significant joint or bone pain. She does not complain of headache or dizziness. She does have some numbness in her right leg, but that does seem to be positional. Medications: She is not on any prescription medication. Allergies: Acetaminophen and Codeine Sulfate. Vital Signs: Performed on Sep 07, 2021 09:36 Height - 65.00 in Weight - 130.8 lbs (LOW) BSA - 1.65 sq.m BMI - 21.77 Temperature - 97.2 F (LOW) Pulse - 76 /min Respiration - 16 /min BP - 149/70 mm(hg) (HIGH) O2 Sat - 99 % Pain - 1 Fatigue - 2 Physical Examination: Constitutional - She looks good generally, Eyes - Sclerae nonicteric. Conjunctivae clear, ENMT - No lesions noted in the oral cavity, Hematologic/Lymphatic - No cervical, clavicular, or axillary adenopathy, Respiratory - Lungs are clear with good air movement bilaterally, Cardiovascular - Heart rhythm is regular. There is no murmur, gallop, or rub noted, Abdomen - Soft. There is mild tenderness in the right lower quadrant medially. Liver is not enlarged or tender. The spleen is not palpable. There is no abdominal mass or ascites noted and there is no inguinal adenopathy, Extremities - No edema, Neurologic - No focal neurologic deficits noted. Lab/Imaging: Her laboratory studies from 08/31/2021 included CBC showing hemoglobin 12.5 g, white blood cell count 7300, and platelet count 443,000. Comprehensive metabolic profile showed stable renal function with BUN 19 and creatinine 1.1 mg/dL. Alkaline phosphatase was slightly elevated at 127/105 IU/L. Her tumor markers included CEA elevated at 11.7 ng/mL and elevated CA-125 at 221.2 U/mL. Problem List: 1. Grade 2 endometrioid adenocarcinoma of the endometrium, stage IB (pT1b, pN0, M0) at initial diagnosis in January 2019. She now has evidence of metastatic disease with PET/CT evidence of FDG avid right and left upper lobe pulmonary nodules, an FDG avid right hepatic lobe mass, and FDG avid right common iliac adenopathy/mass with associated right hydronephrosis. 2. She has had chronic loose stools following adjuvant radiation for the endometrial cancer. 3. She has a positive family history for breast cancer, and she is thus at risk for an hereditary cancer. 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 Her treatment included robotic assisted modified radical laparoscopic total hysterectomy, bilateral salpingo-oophorectomy, and bilateral pelvic and periaortic sentinel lymphadenectomy. Pathology showed 88% myometrial invasion as well as evidence of lymphovascular space invasion, but there was no lymph node involvement. She was given postoperative adjuvant radiation followed by vaginal brachytherapy. As of October [address] scans had shown no evidence of metastatic disease to the chest, abdomen, or pelvis. In May 2021 she presented with new onset of right lower quadrant abdominal pain. Her CT abdomen/pelvis was suspicious for metastatic disease with findings of a soft tissue mass along the right iliac chain with associated right hydronephrosis and with development of a new mass in the right hepatic lobe near the dome. Both lesions were FDG avid by PET and the PET/CT also showed FDG avid right and left upper lobe pulmonary nodules. She was recommended to proceed with biopsy, but none of these lesions were deemed accessible by CT or ultrasound directed biopsy. As such, she had opted to limit her initial treatment to some alternative therapies. Her restaging CT scans on 08/16/2021 showed stable findings. In the absence of any evidence of disease progression, she is going to continue with her alternative therapies. Her lab studies will be monitored monthly, including CBC, comprehensive metabolic profile, and tumor markers. She also will be scheduled for a 3-month interval restaging CT scan. I will see her again when the CT results are available, or sooner as needed. Signed By: Donnie Betancourt M.D. <<Signature on File>>
== END 2021-09-07 09:21 | disposition home or self-care (01) ==
PROVIDERS: PCP Family Medicine Adult Medicine; Visit Provider Internal Medicine Medical Oncology
DX: C54.1 Malignant neoplasm of endometrium (principal); C78.01 Secondary malignant neoplasm of right lung; C78.02 Secondary malignant neoplasm of left lung; C78.7 Secondary malignant neoplasm of liver and intrahepatic bile duct; C77.8 Secondary and unspecified malignant neoplasm of lymph nodes of multiple regions; N13.30 Unspecified hydronephrosis; K52.1 Toxic gastroenteritis and colitis; T45.1X5A Adverse effect of antineoplastic and immunosuppressive drugs, initial encounter; Z80.3 Family history of malignant neoplasm of breast; Z90.710 Acquired absence of both cervix and uterus; Z79.899 Other long term (current) drug therapy
CPT/HCPCS: 99214

== ENCOUNTER 2021-10-01 10:29 | Outpatient (CLI) | payer MEDICARE, SELFPAY ==
--- NOTE | 2021-10-01 10:48 | XR_ITS ---
WS: [id number] Exam: XR KUB [id number] Date/Time of Exam: 10/01/2021 11:06 AM Reason For Exam: right hydronephosis No bowel obstruction or free air. No sign of organ enlargement. Nonspecific bilateral pelvic calcific ations. Total hip replacement on the left. Remaining bony structures are intact. XR/XR KUB [id number] IMPRESSION: 1. No acute abdominal process. 2. Nonspecific bilateral pelvic calcifications.
--- NOTE | 2021-10-01 10:48 | XR_ITS ---
WS: [id number] Exam: XR lumbar spine 2-3V* [id number] Date/Time of Exam: 10/01/2021 11:06 AM Reason For Exam: Low back pain with radiation right leg No acute fracture or dislocation. Degenerative vacuum disc at L5-S1. Mild degenerative disc thinning at L3-4. Minimal spondylosis. Posterior elements are intact. Osteopenia. XR/XR lumbar spine 2-3V* [id number] IMPRESSION: 1. No fracture or malalignment. 2. Degenerative changes as noted above. Osteopenia.
== END 2021-10-01 10:30 | disposition home or self-care (01) ==
PROVIDERS: PCP Family Medicine Adult Medicine; Visit Provider Family Medicine Adult Medicine
DX: M54.16 Radiculopathy, lumbar region (principal); R19.03 Right lower quadrant abdominal swelling, mass and lump; N13.5 Crossing vessel and stricture of ureter without hydronephrosis; Z85.42 Personal history of malignant neoplasm of other parts of uterus; R93.2 Abnormal findings on diagnostic imaging of liver and biliary tract
CPT/HCPCS: 72100; 74018; 80053; 82378; 85025; 86304

== ENCOUNTER 2021-11-01 14:30 | Oncology outpatient (recurring) (ONCR) | payer MEDICARE, SELFPAY ==
[2021-11-01 13:49] LABS: Basophils # 0.1 10^3/uL (0.0-0.1); Basophils % 0.8 %; Eosinophils # 0.1 10^3/uL (0.0-0.8); Eosinophils % 1.8 %; Hematocrit 36.7 % (37.0-47.0); Hemoglobin 12.3 g/dL (11.5-15.3); Lymphocytes # 0.8 10^3/uL (0.8-4.8); Lymphocytes % 12.8 %; Mean Corpuscular HGB Conc 33.5 g/dL (30.0-36.0); Mean Corpuscular Hemoglobin 32.4 pg (28.0-34.0); Mean Corpuscular Volume 96.6 fl (81-99); Mean Platelet Volume 8.2 fL (7.4-10.4); Monocytes # 0.6 10^3/uL (0.2-0.9); Monocytes % 8.9 %; Neutrophils # 4.94 10^3/uL (1.8-7.7); Neutrophils % 75.4 %; Nucleated Red Blood Cells % 0 %; Platelet Count 412 10^3/cmm (130-400); Red Cell Distribution Width 11.7 % (12.1-15.1); White Blood Count 6.6 10^3/uL (4.0-10.0)
[2021-11-01 14:23] LABS: Thyroid Stimulating Hormone 1.99 uIU/mL (0.27-4.20)
--- NOTE | 2021-11-01 14:30 | CT_ITS ---
WS: [id number] CT CHEST, ABDOMEN, AND PELVIS TECHNIQUE: NONCONTRAST CT of the chest, abdomen, and pelvis with coronal and sagittal reformatted shelbi ges. CLINICAL INFORMATION: restaging COMPARISON: CT chest abdomen pelvis August 16, 2021 and PET/CT June 22, 2021 DLP: 960.[address] scans at [facility] use at least one of these dose optimization techniques: automated e xposure control; mA and/or kV adjustment per patient size (includes targeted exams where dose is matc hed to clinical indication); or iterative reconstruction. CT CHEST: Stable 6 mm nodule in the LEFT upper lobe medially. Additional tiny nodules in the LEFT upper lobe ce ntrally and posteriorly measuring 3 to 4 mm are stable. RIGHT suprahilar nodule appears a few millime ters more prominent measuring 11 x 9 mm. Additional 4 mm nodule RIGHT lower lobe medially is stable. Calcified granuloma LEFT lower lobe. Slight subsegmental atelectasis in the lung bases. Additional ti ny nodule in the LEFT lower lobe laterally measuring 2 mm is unchanged. Normal caliber thoracic aorta. Normal caliber proximal main pulmonary arteries. Calcified subcarinal and LEFT hilar lymph nodes. No axillary lymphadenopathy. Prior postoperative changes plate and screw fixation LEFT humerus. CT ABDOMEN AND PELVIS: Low-attenuation lesion in the dome of the liver along the diaphragmatic surface measuring 4.5 x 2.5 x 5.5 cm today. Previously this measured 4.0 x 2.5 x 4.3 cm. This appears slightly larger compared to previous and slightly more thickening along the diaphragm surface. Focal fatty infiltration near the falciform ligament is unchanged. Gallbladder is contracted. Tiny adenoma LEFT adrenal gland is unchanged. Moderate obstructive RIGHT hydronephrosis is unchanged. RIGHT ureterectasis is unchanged in appearance. RIGHT ureter appears tethered at the level of the RI GHT psoas with metastatic lesion in this area unchanged. LEFT ABBI. Tiny umbilical hernia. Normal caliber abdominal aorta. No hydronephrosis in the LEFT kidney . Normal sigmoid colon. No evidence of high-grade small or large bowel obstruction. CT/CT chest abd pel wo con IMPRESSION: 1. RIGHT suprahilar nodule appears slightly more prominent today compared to p revious. This measures 12 x 9 mm today compared to 10 x 8 mm previous. 2. Remainder of the pulmonary nodules are stable. 3. No progressed hilar lymphadenopathy. 4. RIGHT diaphragmatic mass involving the dome of the liver today measures 4.5 x 2.5 x 5.5 cm compared to 4.0 x 2.5 x 4.3cm previous and appears visually mor e prominent. 5. Moderate RIGHT hydronephrosis with ureterectasis is unchanged. Ureter appea rs tethered at the level of the psoas with stable metastatic lesion in this loc ation. 6. Tiny LEFT adrenal adenoma is unchanged. 7. No other significant changes compared to previous.
[2021-11-01 14:35] LABS: Alanine Aminotransferase 10 U/L (0-33); Albumin Level 4.5 g/dL (3.5-5.2); Alkaline Phosphatase 130 IU/L (35-105); Anion Gap 15.3 (5-19); Aspartate Amino Transferase 16 U/L (0-32); Blood Urea Nitrogen 10 mg/dL (8-23); Calcium 9.4 mg/dL (8.5-10.5); Carbon Dioxide 24 mmol/L (22-29); Chloride 98 mmol/L (98-107); Globulin 2.3 g/dL (1.3-4.6); Glucose 106 mg/dL (65-115); Osmolality Calculated 275 mOsm/kg (285-295); Potassium 4.3 mmol/L (3.5-5.1); Sodium 133 mmol/L (136-145); Total Bilirubin 0.5 mg/dL (0.15-1.2); Total Protein 6.8 g/dL (6.6-8.7)
[2021-11-01 15:03] LABS: CA 125 140.8 U/mL (0-35)
[2021-11-01 15:09] LABS: Carcinoembryonic Antigen 11.5 ng/mL (0.0-4.7)
== END 2021-11-09 23:59 | disposition home or self-care (01) ==
LOC: RAD 11-02 00:01
PROVIDERS: PCP Family Medicine Adult Medicine; Visit Provider Internal Medicine Medical Oncology
DX: C54.1 Malignant neoplasm of endometrium (principal); C78.7 Secondary malignant neoplasm of liver and intrahepatic bile duct; R59.0 Localized enlarged lymph nodes; R91.1 Solitary pulmonary nodule; N13.30 Unspecified hydronephrosis; N13.4 Hydroureter; D35.02 Benign neoplasm of left adrenal gland; R97.8 Other abnormal tumor markers; R53.83 Other fatigue
CPT/HCPCS: 36415; 71250; 74176; 80053; 82378; 84443; 85025; 86304; 99214; 99999

== ENCOUNTER → 2021-12-14 13:54 | Outpatient (BNVA) | payer MEDICARE, SELFPAY | PROVIDERS: PCP Family Medicine Adult Medicine; Visit Provider Family Medicine Adult Medicine | DX: C55 Malignant neoplasm of uterus, part unspecified (principal); C78.7 Secondary malignant neoplasm of liver and intrahepatic bile duct; R63.4 Abnormal weight loss; R97.8 Other abnormal tumor markers | CPT/HCPCS: 80053; 82378; 85025; 86304 ==

== ENCOUNTER 2021-12-20 10:38 | Oncology outpatient (recurring) (ONCR) | payer MEDICARE, SELFPAY ==
--- NOTE | 2021-12-20 | USCV_ITS ---
Kristina Boland Age: 76 Gender: F : 1945 Exam Date: 12/20/2021 12:07 Ordering Phys: Donnie Betancourt MD Technologist: ROMAIN Exam Location: [facility] [place] Indication: Leg pain PROCEDURES: Venous duplex imaging was performed in only the right lower extremity. The following venous structures were evaluated: common femoral vein, profunda vein, proximal portion of the greater saphenous vein, superficial femoral vein, and the popliteal vein. In addition, the posterior tibial and peroneal trunk were evaluated. Serial compression, augmentation maneuvers, and spectral Doppler flow evaluation were performed. FINDINGS: Normal 2-D Doppler and augmentation and compressibility throughout the lower extremity venous structures. Additional imaging through the proximal calf veins also reveals no thrombus. Limited evaluation of the greater saphenous vein is patent with no thrombus.. CONCLUSIONS No evidence of right lower extremity DVT. Davian Tavarez MD (Electronically Signed) Final Date: 20 December 2021 17:23 S
[2021-12-29 09:49] LABS: Basophils # 0.1 10^3/uL (0.0-0.1); Eosinophils # 0.1 10^3/uL (0.0-0.8); Eosinophils % 2.2 %; Hematocrit 34.9 % (37.0-47.0); Hemoglobin 11.7 g/dL (11.5-15.3); Lymphocytes # 0.5 10^3/uL (0.8-4.8); Lymphocytes % 8.8 %; Mean Corpuscular HGB Conc 33.5 g/dL (30.0-36.0); Mean Corpuscular Hemoglobin 32.5 pg (28.0-34.0); Mean Corpuscular Volume 96.9 fl (81-99); Mean Platelet Volume 8.5 fL (7.4-10.4); Monocytes # 0.5 10^3/uL (0.2-0.9); Monocytes % 8.1 %; Neutrophils # 4.69 10^3/uL (1.8-7.7); Neutrophils % 79.2 %; Nucleated Red Blood Cells % 0 %; Platelet Count 436 10^3/cmm (130-400); Red Cell Distribution Width 12.2 % (12.1-15.1); White Blood Count 5.9 10^3/uL (4.0-10.0)
[2021-12-29 10:22] LABS: Alanine Aminotransferase 12 U/L (0-33); Albumin Level 3.7 g/dL (3.5-5.2); Alkaline Phosphatase 102 IU/L (35-105); Blood Urea Nitrogen 22 mg/dL (8-23); Calcium 8.8 mg/dL (8.5-10.5); Carbon Dioxide 24 mmol/L (22-29); Chloride 94 mmol/L (98-107); Glucose 124 mg/dL (65-115); Osmolality Calculated 277 mOsm/kg (285-295); Sodium 131 mmol/L (136-145); Total Bilirubin 0.3 mg/dL (0.15-1.2); Total Protein 6.7 g/dL (6.6-8.7)
[2021-12-29 10:33] LABS: Aspartate Amino Transferase 22 U/L (0-32)
[2021-12-29 10:55] LABS: Thyroid Stimulating Hormone 3.03 uIU/mL (0.27-4.20)
== END 2021-12-20 23:59 | disposition home or self-care (01) ==
PROVIDERS: PCP Family Medicine Adult Medicine; Visit Provider Internal Medicine Medical Oncology
DX: C54.1 Malignant neoplasm of endometrium (principal); M79.89 Other specified soft tissue disorders; M54.16 Radiculopathy, lumbar region
CPT/HCPCS: 93971; 99214

== ENCOUNTER 2021-12-29 08:30 | Oncology outpatient (recurring) (ONCR) | payer MEDICARE, SELFPAY ==
--- NOTE | 2021-12-24 11:00 | CT_ITS ---
WS: [id number] CT ABDOMEN AND PELVIS WITH CONTRAST HISTORY: Left leg swelling TECHNIQUE: Imaging performed of the abdomen and pelvis with IV contrast. Single phase imaging of the abdomen. Coronal and sagittal reformats are submitted. All CT scans at [facility] use at [address] st one of these dose optimization techniques: automated exposure control; mA and/or kV adjustment per patient size (includes targeted exams where dose is matched to clinical indication); or iterative re construction. IV CONTRAST: Visipaque 320; 95 mL IV. Oral contrast: Yes. DLP: 765.99 mGy.cm COMPARISON: 11/01/2021 and 08/16/2021 Lower thorax: Lung bases are clear. Heart is normal size. No hiatal hernia. Liver/biliary system: Significant progression of metastatic lesions in the liver since the prior stud ies. The previously described metastatic lesion along the RIGHT diaphragmatic surface involving the d iaphragm and the liver has increased in size now measuring 5.4 x 4.1 cm x 5.9 cm. Progressive invasio n into the liver with increasing thickening along the diaphragmatic surface of the RIGHT lobe of the liver. There is a new lesion adjacent to the falciform ligament which is less likely to be hepatic st eatosis on today's exam. This lesion measures 2.8 x 2.1 cm. The portal vein is normally enhancing. Gallbladder: Gallbladder is mildly contracted. Pancreas: Normal size pancreas and pancreatic duct. No adjacent inflammation. Spleen: Normal size spleen. No mass or infarct. Adrenal glands: Normal RIGHT adrenal gland. 18 x 10 mm mass in the LEFT adrenal gland. Right kidney: Marked hydronephrosis of the RIGHT kidney. Progressive renal atrophy with a long-standi ng obstruction. The ureter is dilated to the retroperitoneal mesenteric deposits obstructing the uret er at the level of L5. Left kidney: Normal. Aorta: Normal. Very slight increase in size of the mesenteric deposit in the RIGHT retroperitoneum beginning at the level of L5 and extending over a length of 6.7 cm along the RIGHT iliac chain. Peripherally enhancing mass with low attenuation necrotic or cystic center measures anterior posterior by 4.3 cm and transv ersely by 2.9 cm. There is encasement and obstruction of the RIGHT iliac vein. The ureter is obstruct ed and there is partial encasement with narrowing of the RIGHT internal and external iliac arteries. Mass extends into the RIGHT psoas muscle. The LEFT IVC and iliac veins are patent. Free fluid: None. GI tract: Stomach is moderately distended with food products and contrast. The antrum and pylorus are distended. The first portion of the duodenum is not as dilated. No obstructive process identified. N o small bowel obstruction. No colon obstruction. Abdominal wall: Unremarkable abdominal wall. No hernia. Pelvis: Well-distended urinary bladder. Prior hysterectomy. No mesenteric deposits are noted within t he pelvis. Bones: LEFT total hip arthroplasty. CT/CT abdomen pelvis w con* [id number] IMPRESSION: 1. Interval progression of metastatic disease disease along the RIGHT diaphrag matic surface with extension into the liver since 11/01/2021. Largest lesion radha sures 5.4 x 4.1 x 5.9 cm. New smaller metastatic lesion along the falciform lig ament. 2. Increase in size of the retroperitoneal metastatic deposit in the RIGHT pel vis centered near L5. This mesenteric deposit is obstructing the LEFT kidney in the RIGHT iliac vein with partial encasement and narrowing of the iliac arteri es. 3. Progressive high-grade RIGHT hydronephrosis. 4. Marked distention of the stomach with food products. No mesenteric deposit is noted causing outlet obstruction. 5. No ascites.
[2021-12-24] MEDS: iodixanol 320 mg/mL 100mL Btl IV (11:25)
[2021-12-29 08:50] VITALS: BMI 21.3
[2021-12-29] MEDS: sodium chloride 0.9% 250 ML 75 ML IV (11:15)
[2021-12-29] MEDS: pembrolizumab 200 MG in sodium chloride 0.9% 250 ML 516 MG IV (11:31)
[2021-12-29 12:27] VITALS: BP 130/70; PULSE 63; RESP 16; TEMP 35.9; O2SAT 98
== END 2022-01-09 23:59 | disposition home or self-care (01) ==
PROVIDERS: PCP Family Medicine Adult Medicine; Visit Provider Internal Medicine Medical Oncology
DX: Z51.12 Encounter for antineoplastic immunotherapy (principal); C54.1 Malignant neoplasm of endometrium; C78.7 Secondary malignant neoplasm of liver and intrahepatic bile duct; C78.6 Secondary malignant neoplasm of retroperitoneum and peritoneum; Z79.899 Other long term (current) drug therapy
CPT/HCPCS: 74177; 80053; 84443; 85025; 96413; 99215; J7050; J9271

== ENCOUNTER 2022-02-07 08:48 | Oncology outpatient (recurring) (ONCR) | payer MEDICARE, SELFPAY ==
[2022-01-17 09:38] LABS: Basophils # 0.1 10^3/uL (0.0-0.1); Basophils % 0.6 %; Eosinophils # 0.1 10^3/uL (0.0-0.8); Eosinophils % 0.6 %; Hematocrit 36.2 % (37.0-47.0); Hemoglobin 12.4 g/dL (11.5-15.3); Lymphocytes # 0.7 10^3/uL (0.8-4.8); Lymphocytes % 8.3 %; Mean Corpuscular HGB Conc 34.3 g/dL (30.0-36.0); Mean Corpuscular Hemoglobin 32.8 pg (28.0-34.0); Mean Corpuscular Volume 95.8 fl (81-99); Mean Platelet Volume 8.3 fL (7.4-10.4); Monocytes # 0.6 10^3/uL (0.2-0.9); Monocytes % 7.6 %; Neutrophils # 6.94 10^3/uL (1.8-7.7); Neutrophils % 82.4 %; Nucleated Red Blood Cells % 0 %; Platelet Count 512 10^3/cmm (130-400); Red Blood Count 3.78 10^6/uL (4.1-5.3); White Blood Count 8.4 10^3/uL (4.0-10.0)
[2022-01-17 10:13] LABS: Alanine Aminotransferase 32 U/L (0-33); Albumin Level 4.3 g/dL (3.5-5.2); Alkaline Phosphatase 124 IU/L (35-105); Anion Gap 21.7 (5-19); Aspartate Amino Transferase 39 U/L (0-32); Blood Urea Nitrogen 14 mg/dL (8-23); Calcium 9.7 mg/dL (8.5-10.5); Carbon Dioxide 24 mmol/L (22-29); Chloride 97 mmol/L (98-107); Free T4 Free Thyroxine 1.47 ng/dL (0.82-1.77); Globulin 3.1 g/dL (1.3-4.6); Glucose 123 mg/dL (65-115); Osmolality Calculated 290 mOsm/kg (285-295); Potassium 3.7 mmol/L (3.5-5.1); Sodium 139 mmol/L (136-145); Thyroid Stimulating Hormone 2.86 uIU/mL (0.27-4.20); Total Bilirubin 0.8 mg/dL (0.15-1.2); Total Protein 7.4 g/dL (6.6-8.7)
[2022-01-17] MEDS: famotidine 20 mg/2 mL INJ IVP (10:21)
[2022-01-17] MEDS: sodium chloride 0.9% 1,000 ML 999 ML IV (10:21)
[2022-01-17 12:00] VITALS: BP 112/64; PULSE 72; RESP 18; TEMP 36.4; O2SAT 98
[2022-01-25 09:36] VITALS: BMI 20.1
[2022-01-25 09:37] LABS: Basophils % 0.2 %; Eosinophils # 0.1 10^3/uL (0.0-0.8); Eosinophils % 0.9 %; Hemoglobin 12.2 g/dL (11.5-15.3); Lymphocytes # 0.8 10^3/uL (0.8-4.8); Lymphocytes % 6.3 %; Mean Corpuscular Hemoglobin 32.4 pg (28.0-34.0); Mean Corpuscular Volume 98.4 fl (81-99); Mean Platelet Volume 8.1 fL (7.4-10.4); Monocytes # 0.9 10^3/uL (0.2-0.9); Monocytes % 7.2 %; Neutrophils % 84.7 %; Nucleated Red Blood Cells % 0 %; Platelet Count 552 10^3/cmm (130-400); Red Blood Count 3.76 10^6/uL (4.1-5.3); Red Cell Distribution Width 13.3 % (12.1-15.1); White Blood Count 12.2 10^3/uL (4.0-10.0)
[2022-01-25 10:11] LABS: Alanine Aminotransferase 19 U/L (0-33); Alkaline Phosphatase 97 U/L (35-105); Anion Gap 13.2 (5-19); Aspartate Amino Transferase 18 U/L (0-32); Blood Urea Nitrogen 18 mg/dL (8-23); Calcium 9.1 mg/dL (8.5-10.5); Carbon Dioxide 30 mmol/L (22-29); Chloride 101 mmol/L (98-107); Globulin 2.5 g/dL (1.3-4.6); Glucose 105 mg/dL (65-115); Osmolality Calculated 292 mOsm/kg (285-295); Potassium 4.2 mmol/L (3.5-5.1); Sodium 140 mmol/L (136-145); Thyroid Stimulating Hormone 2.78 uIU/mL (0.27-4.20); Total Bilirubin 0.6 mg/dL (0.15-1.2); Total Protein 6.5 g/dL (6.6-8.7)
--- NOTE | 2022-01-25 12:02 | PC.NURSE ---
Patient not receiving any treatment today. Patient left with IV access in the right forearm. This nurse called the patient and there no answer and I left a message for her to return my call.
--- NOTE | 2022-02-01 09:30 | CT_ITS ---
WS: [id number] CT CHEST, ABDOMEN AND PELVIS WITH CONTRAST. HISTORY: Restaging uterine cancer. TECHNIQUE: Contiguous 5 mm axial imaging performed through the chest, abdomen and pelvis with IV cont rast, oral contrast has been provided. Coronal and sagittal reformats chest. Coronal and sagittal ref ormats through the abdomen and pelvis. All CT scans at [facility] use at least one of these d ose optimization techniques: automated exposure control; mA and/or kV adjustment per patient size (in cludes targeted exams where dose is matched to clinical indication); or iterative reconstruction. CONTRAST: Visipaque 320; 75 mL IV. DLP: 1186.39 mGy.cm COMPARISON: 12/24/2021 and 11/01/[address]: Stable bilateral pulmonary nodules since 11/01/2021. Largest noncalcified nodule in the RIGH T suprahilar region measures 10 x 8 mm. Additional 5 mm nodule at the LEFT apex. There are additional scattered nodules within the lungs which are stable. No new or increasing size of any nodule. Heart size is normal. No pericardial or pleural effusion. No mediastinal or hilar adenopathy. Pulmonary art dex size is normal. Small hiatal hernia. Abdomen CT: Mild progression of the metastatic lesion along the RIGHT diaphragmatic surface which is extension into the liver. There is extension along the liver capsule. This mass measures transversely 7.9 cm, AP 5.4 cm and over a length of 4.7 cm. Mild progression of stenosis along the capsule of the liver. There is an additional metastatic lesion along the falciform ligament measured 1.9 cm maximum diameter which is unchanged. Normal enhancement of the portal vein. Negative spleen. Negative pancre as. Normal RIGHT adrenal gland. LEFT adrenal gland nodule is reidentified measuring 1.8 x 1.0 cm. Gal lbladder is contracted. Severe hydronephrosis RIGHT kidney and hydroureter. 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 Severe hydronephrosis was also present on the prior study without improv ement. No obstruction of the LEFT kidney. Stomach is moderately well distended with contrast. Mixed density within the stomach. Contrast does n ot layer in the dependent portion of the stomach. No outlet obstruction is evident. No small bowel ob struction. Diffuse constipation. A few scattered diverticula in the sigmoid region without acute dive rticulitis. 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 Not significantly decreased in size. This mesenteric implant is obstructing the mi d RIGHT ureter and encasing the RIGHT iliac arteries. No obstruction of the arteries. No new implants or ascites identified. Pelvic CT: No free fluid. Prior hysterectomy. No adenopathy within the pelvis. No metastatic lesions identified within the bones. CT/CT chest abd pel w con* IMPRESSION: 1. Slight increase in size of the metastatic mass along the RIGHT diaphragmati c surface with extension into the liver. Mass now measures 7.9 x 5.4 x 4.7 cm. 2. Stable 1.9 cm metastatic lesion along the falciform ligament. 3. Bilateral pulmonary nodules are stable. The largest in the RIGHT suprahilar region measures 10 x 8 mm. No adenopathy. 4. 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 Causing complete obstruction of th e RIGHT kidney with hydroureteronephrosis. Tumor encasement of the RIGHT iliac arteries with no obstruction. 5. No ascites. 6. Stable LEFT adrenal adenoma. 7. Mixed density within the stomach. Contrast does not layer in the dependent portion of the stomach. Non digested intraluminal contents are suspected. Tumor cannot be excluded completely excluded.
[2022-02-01] MEDS: barium sulfate 450 mL Oral Susp PO (10:38)
[2022-02-01] MEDS: iodixanol 320 mg/mL 100mL Btl IV (10:38)
== END 2022-02-09 23:59 | disposition home or self-care (01) ==
LOC: ONCMED 02-10 06:42
PROVIDERS: PCP Family Medicine Adult Medicine; Visit Provider Internal Medicine Medical Oncology
DX: C54.1 Malignant neoplasm of endometrium (principal); C78.7 Secondary malignant neoplasm of liver and intrahepatic bile duct; N13.2 Hydronephrosis with renal and ureteral calculous obstruction; C77.8 Secondary and unspecified malignant neoplasm of lymph nodes of multiple regions; N13.4 Hydroureter; R63.0 Anorexia; Z68.1 Body mass index [BMI] 19.9 or less, adult; R53.0 Neoplastic (malignant) related fatigue; F12.90 Cannabis use, unspecified, uncomplicated; Z79.52 Long term (current) use of systemic steroids; Z79.899 Other long term (current) drug therapy
CPT/HCPCS: 36415; 71260; 74177; 80053; 84439; 84443; 85025; 96365; 96375; 99213; 99214; 99215; G0463; J2930; J3490; J7030

== ENCOUNTER 2022-03-16 13:11 | Oncology outpatient (recurring) (ONCR) | payer MEDICARE, SELFPAY | END 2022-04-11 23:59 | disposition home or self-care (01) | PROVIDERS: PCP Family Medicine Adult Medicine; Visit Provider Internal Medicine Medical Oncology | DX: C54.1 Malignant neoplasm of endometrium (principal); C78.7 Secondary malignant neoplasm of liver and intrahepatic bile duct; C77.8 Secondary and unspecified malignant neoplasm of lymph nodes of multiple regions; Z90.710 Acquired absence of both cervix and uterus; Z90.722 Acquired absence of ovaries, bilateral; R22.41 Localized swelling, mass and lump, right lower limb; R19.7 Diarrhea, unspecified; R63.0 Anorexia; R11.0 Nausea; R00.0 Tachycardia, unspecified; R53.1 Weakness; R53.0 Neoplastic (malignant) related fatigue; Z68.21 Body mass index [BMI] 21.0-21.9, adult; Z79.899 Other long term (current) drug therapy | CPT/HCPCS: 99214 ==

== ENCOUNTER → 2022-03-30 16:18 | Outpatient (BNVA) | payer MEDICARE, SELFPAY | PROVIDERS: PCP Family Medicine Adult Medicine; Visit Provider Internal Medicine Medical Oncology | DX: C55 Malignant neoplasm of uterus, part unspecified (principal) | CPT/HCPCS: 80053; 85025 ==

== ENCOUNTER 2022-04-01 14:19 | Outpatient (CLI) | payer MEDICARE, SELFPAY ==
[2022-04-01] MEDS: iohexol 350 mg/mL 100 mL Btl IV (15:10)
[2022-04-01] MEDS: iohexol 350 mg/mL 100 mL Btl PO (15:12)
--- NOTE | 2022-04-01 16:00 | CTR_ITS ---
PROCEDURE INFORMATION: Exam: CT Chest With Contrast; Diagnostic Exam date and time: 04/01/2022 3:45 PM Age: 76 years old Clinical indication: Condition or disease; Other: Uterine cancer; Prior surgery; Surgery type: Hysterectomy TECHNIQUE: Imaging protocol: Diagnostic computed tomography of the chest with contrast. Radiation optimization: All CT scans at this facility use at least one of these dose optimization techniques: automated exposure control; mA and/or kV adjustment per patient size (includes targeted exams where dose is matched to clinical indication); or iterative reconstruction. Contrast material: OMNI 350; Contrast volume: 95 ml; Contrast route: INTRAVENOUS (IV); COMPARISON: 1. CT chest abd pel w con* 02/01/2022 10:[address] chest abd pel w con* 10/12/2020 3:[address] chest abd pel w con* 08/16/2021 10:[address] [place] [id number] 11/01/2021 3:[address] chest abd pel w con* 01/18/2016 8:34 AM RADIATION DOSE METRICS: Total DLP (mGy-cm): 1190.5 FINDINGS: Lungs: There is a 5 mm sized nodule medially at the right apex image number 7 series 4 not significantly changed from the most recent study but definitely smaller than on 11/01/2021. Tiny less than 2 mm nodule posterior left upper lobe image number 13 slightly smaller. 9 mm right suprahilar nodule image number 22 series 4 unchanged from 02/01/2022 but smaller than 11/01/2021 calcified granuloma medially at right lung base stable since 2016. No new pulmonary nodules are identified. Calcified granuloma left lower lobe unchanged. Pleural spaces: No pleural effusion Heart: Unremarkable. No cardiomegaly. No pericardial effusion. Lymph nodes: 11 x 16 mm pretracheal lymph node image number 20 series 4 is larger than on previous examinations, was 5 x 6 mm on 10/12/2020 and 7 x 13 mm on 02/01/2022. There are calcified mediastinal and hilar lymph nodes in keeping with old granulomatous disease. Vasculature: There is no thoracic aortic aneurysm or dissection. Bones/joints: Unremarkable. No acute fracture. Soft tissues: Unremarkable. PROCEDURE INFORMATION: Exam: CT Abdomen And Pelvis With Contrast Exam date and time: 04/01/2022 3:45 PM Age: 76 years old Clinical indication: Condition or disease; Other: Uterine cancer; Prior surgery; Surgery type: Hysterectomy TECHNIQUE: Imaging protocol: Computed tomography of the abdomen and pelvis with contrast. Radiation optimization: All CT scans at this facility use at least one of these dose optimization techniques: automated exposure control; mA and/or kV adjustment per patient size (includes targeted exams where dose is matched to clinical indication); or iterative reconstruction. Contrast material: OMNI 350; Contrast volume: 95 ml; Contrast route: INTRAVENOUS (IV); COMPARISON: 1. CT chest abd pel w con* 02/01/2022 10:[address] chest abd pel w con* 10/12/2020 3:[address] chest abd pel w con* 08/16/2021 10:[address] [place] [id number] 11/01/2021 3:[address] chest abd pel w con* 01/18/2016 8:34 AM RADIATION DOSE METRICS: Total DLP (mGy-cm): 1190.5 FINDINGS: Liver: Heterogeneous complex mass right lobe of the liver extending through the diaphragmatic surface of the liver and into the subhepatic space is larger measuring 77 x 56 x 65 mm previously 58 x 41 x 46 mm. Metastatic lesion in the left lobe of the liver adjacent the falciform ligament measures 13 mm but is less evident than on 02/01/2022. Gallbladder and bile ducts: The gallbladder is normal. Pancreas: The pancreas is normal. Spleen: The spleen is normal. Adrenal glands: 11 mm left adrenal nodule stable compared with 10/12/2020, likely benign adenoma. Nodularity adjacent to the right adrenal gland may represent peritoneal implants. Kidneys and ureters: The left kidney is normal. There is marked right hydronephrosis. Stomach and bowel: Unremarkable. No obstruction. No mucosal thickening. Appendix: No evidence of appendicitis. Intraperitoneal space: There are several tumor implants along the serosal surface of the right lobe of the liver new from 02/01/2022. See Liver finding. Vasculature: Unremarkable. No abdominal aortic aneurysm. Lymph nodes: There is no evidence of lymphadenopathy. Urinary bladder: Unremarkable as visualized. Reproductive: There has been a hysterectomy. Bones/joints: There is left hip replacement unchanged. Soft tissues: Right retroperitoneal mass medial to the right psoas muscle and abutting the right iliac artery not significantly changed. This is the likely cause of the hydronephrosis. CT/CT chest abd pel w con* IMPRESSION: 1. Pulmonary nodules not significantly changed compared with 02/01/2022. 2. Question of new mediastinal adenopathy. IMPRESSION: 1. Increase in right lobe hepatic mass and associated serosal metastatic implants on the right side of the liver. 2. Left lobe metastatic lesion less prominent than on the previous examination. 3. Retroperitoneal mass not significantly changed.
== END 2022-04-01 14:20 | disposition home or self-care (01) ==
LOC: RAD 14:19
PROVIDERS: PCP Family Medicine Adult Medicine; Visit Provider Internal Medicine Medical Oncology
DX: C55 Malignant neoplasm of uterus, part unspecified (principal); C78.7 Secondary malignant neoplasm of liver and intrahepatic bile duct
CPT/HCPCS: 71260; 74177

== ENCOUNTER 2022-04-18 07:37 | Outpatient (CLI) | payer MEDICARE, SELFPAY ==
[2022-04-18 08:40] LABS: Calcium 9.4 mg/dL (8.5-10.5)
[2022-04-18 08:45] LABS: Tumor Marker Alpha Fetoprotein 5.2 ng/mL (0-8.3)
[2022-04-18 08:46] LABS: Parathyroid Hormone 20.2 pg/mL (15-65)
[2022-04-18 08:56] LABS: Alanine Aminotransferase 18 U/L (0-33); Albumin Level 3.6 g/dL (3.5-5.2); Alkaline Phosphatase 99 U/L (35-105); Anion Gap 14.2 (5-19); Aspartate Amino Transferase 20 U/L (0-32); Blood Urea Nitrogen 24 mg/dL (8-23); Calcium 9.4 mg/dL (8.5-10.5); Carbon Dioxide 27 mmol/L (22-29); Chloride 96 mmol/L (98-107); Globulin 2.6 g/dL (1.3-4.6); Glucose 99 mg/dL (65-115); Osmolality Calculated 280 mOsm/kg (285-295); Potassium 4.2 mmol/L (3.5-5.1); Sodium 133 mmol/L (136-145); Total Bilirubin 0.5 mg/dL (0.15-1.2); Total Protein 6.2 g/dL (6.6-8.7)
== END 2022-04-18 07:38 | disposition home or self-care (01) ==
LOC: LAB 07:39
PROVIDERS: PCP Family Medicine Adult Medicine; Visit Provider Family Medicine Adult Medicine
DX: C55 Malignant neoplasm of uterus, part unspecified (principal); C78.7 Secondary malignant neoplasm of liver and intrahepatic bile duct; R63.4 Abnormal weight loss
CPT/HCPCS: 80053; 82105; 82310; 83970

== ENCOUNTER 2022-05-09 11:25 | Outpatient (CLI) | payer MEDICARE, SELFPAY ==
--- NOTE | 2022-05-09 11:45 | MR_ITS ---
WS: [id number] MRI LUMBAR SPINE NONCONTRAST HISTORY: Pain radiating into the Rt leg with known cancer metastasis COMPARISON: None available. TECHNIQUE: Sagittal and axial multisequence imaging is submitted. Mild straightening of the normal lumbar lordosis. No marrow edema. No decreased signal on the T1 sequ ences which can be seen with metastatic disease. The bases are narrowed and desiccated most significant at L3-4. Conus terminates normally at L1-2 disc level. L1-L2: Normal. L2-L3: Mild facet and ligamentum flavum hypertrophy. No stenosis. L3-L4: Mild disc bulging. Very slight encroachment upon the traversing L4 nerve roots but no stenosis . Mild ligamentum flavum and facet arthritis. Nerve roots are becoming clumped in the posterior theca l sac. L4-L5: Moderate ligamentum flavum and facet arthritis. No high-grade stenosis. L5-S1: Mild disc bulging and osteophytic ridging. Bilateral facet joint arthritis. No significant for aminal stenosis and no disc protrusions. There is very mild increased T2 signal in the paravertebral soft tissues on the RIGHT extending from L2 through L4. Severe RIGHT hydroureteronephrosis is no ureter is obstructed by mass in the RIGHT adnexa which has b een previously described. Small amount of free fluid is noted in the pelvis. MR/MR lumbar spine wo con* [id number] IMPRESSION: 1. No high-grade central or foraminal stenosis. Facet joint arthritis and liga mentum flavum arthritis. Very minimal disc encroachment upon the traversing L4 nerve roots. 2. RIGHT paravertebral muscle edema from L2 through L4. Probably representing a mild sprain and may be related to the recent injury. 3. Known high-grade RIGHT hydroureteronephrosis secondary to an obstructing ma ss in the RIGHT pelvis.
== END 2022-05-09 11:26 | disposition home or self-care (01) ==
PROVIDERS: PCP Family Medicine Adult Medicine; Visit Provider Family Medicine Adult Medicine
DX: M54.16 Radiculopathy, lumbar region (principal); R60.0 Localized edema; N13.30 Unspecified hydronephrosis
CPT/HCPCS: 72148

== ENCOUNTER → 2022-05-12 09:18 | Outpatient (BNVA) | payer MEDICARE, SELFPAY | PROVIDERS: PCP Family Medicine Adult Medicine; Visit Provider Anesthesiology Pain Medicine | DX: M54.16 Radiculopathy, lumbar region (principal); M51.36 Other intervertebral disc degeneration, lumbar region; M79.604 Pain in right leg; R34 Anuria and oliguria; R63.4 Abnormal weight loss; N39.0 Urinary tract infection, site not specified; R19.4 Change in bowel habit; C78.7 Secondary malignant neoplasm of liver and intrahepatic bile duct; C55 Malignant neoplasm of uterus, part unspecified | CPT/HCPCS: 81000; 99205 ==

== ENCOUNTER 2022-05-19 20:17 | Emergency (ER) | payer MEDICARE, SELFPAY ==
[2022-05-19 20:33] VITALS: BP 120/71; PULSE 70; RESP 16; TEMP 36.8; O2SAT 97; BMI 18.3
[2022-05-19 22:07] VITALS: BP 149/96
--- NOTE | 2022-05-19 22:18 | CTR_ITS ---
PROCEDURE INFORMATION: Exam: CT Abdomen And Pelvis With Contrast Exam date and time: 05/19/2022 10:55 PM Age: 76 years old Clinical indication: Abdominal pain; Generalized; Prior surgery; Surgery type: Left eloy. Hysterectomy; Patient HX: C/O abd and low back pain. History of metastatic uterine cancer. ; Additional info: Abd pain TECHNIQUE: Imaging protocol: Computed tomography of the abdomen and pelvis with contrast. Radiation optimization: All CT scans at this facility use at least one of these dose optimization techniques: automated exposure control; mA and/or kV adjustment per patient size (includes targeted exams where dose is matched to clinical indication); or iterative reconstruction. Contrast material: OMNI 350; Contrast volume: 80 ml; Contrast route: INTRAVENOUS (IV); COMPARISON: CT chest abd pel w con* 04/01/2022 3:45 PM RADIATION DOSE METRICS: Total DLP (mGy-cm): 357.83 FINDINGS: Lungs: Right lung base atelectasis. Liver: Aggressive right hepatic mass again seen, larger from 04/01/2022. Today it measures up to 9.8 cm, previously up to about 8.3 cm. Adjacent small liver satellite masses have developed as well, and some of these are subcapsular. An aggressive liver cancer is very likely. Gallbladder and bile ducts: No calcified gallstones or biliary dilation identified. Pancreas: Unremarkable with no suspicious mass. No ductal dilation. Spleen: The spleen is not enlarged. No suspicious enhancing mass is noted. Adrenal glands: A left adrenal nodule measures about 1.6 cm, unchanged. Kidneys and ureters: Severe chronic right hydronephrosis is again seen. This is likely due to a right mid abdominal large heterogenous mass, which today measures up to about 6.3 cm. It previously measured about 4.2 cm. Stomach and bowel: Moderate sigmoid diverticulosis. Appendix: No evidence of appendicitis. Intraperitoneal space: Trace pelvic free fluid. Vasculature: No AAA or acute vascular lesion identified. Lymph nodes: Large right retroperitoneal steffanie mass is larger. See above. Urinary bladder: Unremarkable as visualized. Reproductive: Unremarkable as visualized. Bones/joints: Left hip arthroplasty. No pathologic fracture has developed. Possible small S2 sclerotic lesion. Soft tissues: No focal abscess noted. Other findings: Very small right effusion is present. CT/CT abdomen pelvis w con* [id number] IMPRESSION: 1. Findings of severe stage IV liver cancer have progressed considerably from 04/01/2022. Concerning and ominous findings. 2. New small right pleural effusion with right lung base atelectasis. 3. Severe right hydronephrosis is unimproved, and this is due to a large likely steffanie metastatic mass along the right mid ureter. 4. Numerous other findings above. No small bowel obstruction, abscess or free air.
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
[2022-05-19 22:30] VITALS: BP 151/78
[2022-05-19 22:44] VITALS: RESP 18
[2022-05-19] MEDS: HYDROmorphone 1 mg/mL INJ 1 mL IVP (22:44)
[2022-05-19] MEDS: ondansetron 2 mg/ML SDV 2 mL 4 MG IVP (22:45)
[2022-05-19] MEDS: iohexol 350 mg/mL 500 mL Btl (per mL) IV (22:59)
[2022-05-19 23:00] LABS: Basophils % 0.2 %; Hematocrit 34.2 % (37.0-47.0); Hemoglobin 11.1 g/dL (11.5-15.3); Lymphocytes # 0.8 10^3/uL (0.8-4.8); Lymphocytes % 6.9 %; Mean Corpuscular HGB Conc 32.5 g/dL (30.0-36.0); Mean Corpuscular Hemoglobin 31.2 pg (28.0-34.0); Mean Corpuscular Volume 96.1 fl (81-99); Mean Platelet Volume 8.2 fL (7.4-10.4); Monocytes # 0.7 10^3/uL (0.2-0.9); Monocytes % 5.9 %; Neutrophils # 10.23 10^3/uL (1.8-7.7); Neutrophils % 85.7 %; Nucleated Red Blood Cells % 0 %; Platelet Count 674 10^3/cmm (130-400); Red Blood Count 3.56 10^6/uL (4.1-5.3); Red Cell Distribution Width 14.2 % (12.1-15.1); White Blood Count 11.9 10^3/uL (4.0-10.0)
[2022-05-19 23:30] VITALS: BP 134/74
[2022-05-19 23:52] LABS: Alanine Aminotransferase 15 U/L (0-33); Albumin Level 3.2 g/dL (3.5-5.2); Alkaline Phosphatase 81 U/L (35-105); Anion Gap 13.3 (5-19); Aspartate Amino Transferase 22 U/L (0-32); Blood Urea Nitrogen 23 mg/dL (8-23); Calcium 8.5 mg/dL (8.5-10.5); Carbon Dioxide 25 mmol/L (22-29); Chloride 99 mmol/L (98-107); Globulin 2.4 g/dL (1.3-4.6); Glucose 124 mg/dL (65-115); Lipase 26 U/L (13-60); Osmolality Calculated 281 mOsm/kg (285-295); Potassium 4.3 mmol/L (3.5-5.1); Sodium 133 mmol/L (136-145); Total Bilirubin 0.3 mg/dL (0.15-1.2); Total Protein 5.6 g/dL (6.6-8.7)
[2022-05-20] VITALS: BP 140/74; PULSE 60; RESP 16; O2SAT 97
[2022-05-20 00:17] LABS: Add Urine Microscopic? NO; Charge for UA Resulting for Rev
[2022-05-20 00:30] LABS: Bilirubin Urine Neg (Negative); Blood Urine Neg (Negative); Glucose Urine UA Norm (Normal); Ketones Urine 1+ (Negative); Leukocyte Esterase Urine Negative (Negative); Nitrate Urine Negative (Negative); Protein Urine Neg (Negative); Specific Gravity, Urine 1.015 (1.005-1.030); Urine Appearance Clear (CLEAR); Urine Color Yellow (Yellow); Urobilinogen Urine Norm (Negative); pH Urine 8 (5-7)
== END 2022-05-20 00:57 | disposition home or self-care (01) ==
PROVIDERS: Emergency Provider Emergency Medicine; PCP Family Medicine Adult Medicine
DX: R10.9 Unspecified abdominal pain (principal); C55 Malignant neoplasm of uterus, part unspecified; Z79.891 Long term (current) use of opiate analgesic; Z90.710 Acquired absence of both cervix and uterus; Z90.722 Acquired absence of ovaries, bilateral
CPT/HCPCS: 74177; 80053; 81000; 81003; 83690; 85025; 96374; 96375; 99285; J1170; J2405; Q9967

== ENCOUNTER → 2022-05-23 14:16 | Outpatient (BNVA) | payer MEDICARE, SELFPAY | PROVIDERS: PCP Family Medicine Adult Medicine; Visit Provider Family Medicine Adult Medicine | DX: N13.5 Crossing vessel and stricture of ureter without hydronephrosis (principal); R10.9 Unspecified abdominal pain; N39.0 Urinary tract infection, site not specified; C55 Malignant neoplasm of uterus, part unspecified; C78.7 Secondary malignant neoplasm of liver and intrahepatic bile duct; R63.4 Abnormal weight loss; M54.16 Radiculopathy, lumbar region; R19.7 Diarrhea, unspecified; R19.4 Change in bowel habit | CPT/HCPCS: 87177; 87209; 87425; 87493 ==

== ENCOUNTER → 2022-06-01 14:17 | Outpatient (BNVA) | payer MEDICARE, SELFPAY | PROVIDERS: PCP Family Medicine Adult Medicine; Visit Provider Anesthesiology Pain Medicine | DX: M54.16 Radiculopathy, lumbar region (principal) | CPT/HCPCS: 64483; 64484; J1100; J3490 ==

== ENCOUNTER 2022-07-26 07:54 | Emergency (ER) | payer MEDICARE, SELFPAY ==
[2022-07-26] VITALS (22 sets, daily range): BP systolic 117–131; BP diastolic 57–67; PULSE 77–83; RESP 16–20; TEMP 36.4; O2SAT 91–98; BMI 16.6
--- NOTE | 2022-07-26 07:59 | XRR_ITS ---
PROCEDURE INFORMATION: Exam: XR Chest Exam date and time: 07/26/2022 8:13 AM Age: 76 years old Clinical indication: Cough and dyspnea; Patient HX: Liver cancer; Additional info: Dyspnea/cough TECHNIQUE: Imaging protocol: Radiologic exam of the chest. Views: 1 view. COMPARISON: CT chest abd pel w con* 04/01/2022 3:45 PM FINDINGS: Lungs: The lungs are somewhat hyperinflated with increased interstitial markings, likely representing COPD. Elevation of the right hemidiaphragm with adjacent atelectasis is again seen. Pneumonia should be excluded clinically. Pleural spaces: Unremarkable. No pleural effusion. No pneumothorax. Heart/Mediastinum: Stable cardiomediastinal silhouette. Bones/joints: Unremarkable. XR/XR chest 1V portable [id number] IMPRESSION: 1. COPD changes. 2. Right basilar atelectasis. Pneumonia should be excluded clinically.
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
[2022-07-26 08:16] LABS: Basophils # 0.1 10^3/uL (0.0-0.1); Basophils % 0.3 %; Eosinophils # 0.1 10^3/uL (0.0-0.8); Eosinophils % 0.3 %; Hematocrit 35.2 % (37.0-47.0); Hemoglobin 11.6 g/dL (11.5-15.3); Lymphocytes # 2.5 10^3/uL (0.8-4.8); Lymphocytes % 11.8 %; Mean Corpuscular Hemoglobin 30.3 pg (28.0-34.0); Mean Corpuscular Volume 91.9 fl (81-99); Mean Platelet Volume 8.2 fL (7.4-10.4); Monocytes # 0.6 10^3/uL (0.2-0.9); Monocytes % 2.9 %; Neutrophils # 17.42 10^3/uL (1.8-7.7); Neutrophils % 83.2 %; Nucleated Red Blood Cells % 0 %; Platelet Count 609 10^3/cmm (130-400); Red Blood Count 3.83 10^6/uL (4.1-5.3); White Blood Count 20.9 10^3/uL (4.0-10.0)
[2022-07-26] MEDS: morphine 4 mg/mL SDV 1 mL IVP ×3 (08:20→11:54)
[2022-07-26] MEDS: ondansetron 2 mg/ML SDV 2 mL 4 MG IVP (08:20)
[2022-07-26 08:33] LABS: Alanine Aminotransferase 19 U/L (0-33); Albumin Level 3.9 g/dL (3.5-5.2); Alkaline Phosphatase 196 U/L (35-105); Anion Gap 28.1 (5-19); Aspartate Amino Transferase 37 U/L (0-32); Blood Urea Nitrogen 51 mg/dL (8-23); Carbon Dioxide 19 mmol/L (22-29); Chloride 93 mmol/L (98-107); Globulin 2.3 g/dL (1.3-4.6); Glucose 109 mg/dL (65-115); Lipase 27 U/L (13-60); Osmolality Calculated 296 mOsm/kg (285-295); Potassium 4.1 mmol/L (3.5-5.1); Sodium 136 mmol/L (136-145); Total Bilirubin 0.4 mg/dL (0.15-1.2); Total Protein 6.2 g/dL (6.6-8.7)
[2022-07-26] MEDS: sodium chloride 0.9% 1,000 ML 999 ML IV ×2 (08:47→09:49)
--- NOTE | 2022-07-26 11:50 | DCPLANNER ---
brownfield redevelopment site manager was asked to call [facility], to see when the hospice company would be able to speak with patient and family about getting set up on hospice services. brownfield redevelopment site manager called and spoke with Brent at [facility], was told that she would call patients to set up a time for the hospice company to see patient in her home to set up on services. brownfield redevelopment site manager updated ER physician and nurse that hospice was calling patient.
== END 2022-07-26 12:13 | disposition home or self-care (01) ==
PROVIDERS: Emergency Provider Family Medicine; PCP Family Medicine Adult Medicine
DX: C55 Malignant neoplasm of uterus, part unspecified (principal); C78.7 Secondary malignant neoplasm of liver and intrahepatic bile duct; C78.89 Secondary malignant neoplasm of other digestive organs; R13.10 Dysphagia, unspecified; N13.5 Crossing vessel and stricture of ureter without hydronephrosis
CPT/HCPCS: 71045; 80053; 83690; 85025; 96361; 96374; 96375; 96376; 99285; J2270; J2405; J7030